=== PATIENT | female | born 1965 | race Caucasian/White ===

== ENCOUNTER 2022-09-17 19:53 | Outpatient (REF) | payer OTHER, SELFPAY ==
[2022-09-23 15:08] LABS: Age Gdln ACOG Testing Note (.); HPV Aptima Negative (Negative); IGP, Aptima HPV, rfx 16/18,45 Note (.)
== END 2022-09-17 19:54 | disposition home or self-care (01) ==
LOC: LAB 19:53
PROVIDERS: Visit Provider Physician Assistant
DX: Z01.419 Encounter for gynecological examination (general) (routine) without abnormal findings (principal)
CPT/HCPCS: 87624; G0145

== ENCOUNTER 2022-09-30 06:59 | Outpatient (OUT) | payer OTHER, SELFPAY ==
--- NOTE | 2022-09-30 07:03 | MM_ITS ---
Patient: SUSAN COLLAZO Exam Date: 09/30/2022 : 1965 Gender:F Ordering : DR Leo Garrett . Admission #: [id number] Family : Non-Staff Physician Order #: [id number] CLICK HERE TO VIEW EXAM RADIOLOGY REPORT PROCEDURE: MM TOMOSYNTHESIS SCREENING BI COMPARISON: MG MAMM SCREEN BLOSSOM W CAD, 01/25/2019. MG MAMM SCREEN 3D BLOSSOM CAD, 06/19/2020. INDICATIONS: Screening Calculator Name NCI Breast Cancer Risk Assessment Tool 5 Year Breast Cancer Risk 1.70% Lifetime Breast Cancer Risk 9.10% Personal Breast Cancer No Personal Ovarian Cancer No Treatments None Family Cancers None LOCATION: [facility] BREAST COMPOSITION: Heterogeneously dense,which may obscure small masses. FINDINGS: DIAGNOSTIC CATEGORY 1--NEGATIVE. NO CHANGE FROM COMPARISON ASSESSMENT. Scattered benign-appearing calcifications are present. Scattered benign-appearing lymph nodes are present. RIGHT BREAST: No significant suspicious finding. LEFT BREAST: No significant suspicious finding. RECOMMENDATIONS: ROUTINE MAMMOGRAM AND CLINICAL EVALUATION IN 12 MONTHS. PLEASE NOTE: A NORMAL MAMMOGRAM DOES NOT EXCLUDE THE POSSIBILITY OF BREAST CANCER. A CLINICALLY SUSPICIOUS PALPABLE LUMP SHOULD BE BIOPSIED. Dictated by: Ravi Sepulveda MD on 09/30/2022 at 07:39 Approved by: Ravi Sepulveda MD on 09/30/2022 at 07:53
== END 2022-09-30 07:00 | disposition home or self-care (01) ==
LOC: MAMMO 06:59
PROVIDERS: Visit Provider Obstetrics & Gynecology
DX: Z12.31 Encounter for screening mammogram for malignant neoplasm of breast (principal)
CPT/HCPCS: 77063; 77067

== ENCOUNTER 2023-10-06 06:51 | Outpatient (OUT) | payer OTHER, SELFPAY ==
--- NOTE | 2023-10-06 06:54 | MM_ITS ---
Patient Name: SUSAN COLLAZO MR#: [id number] : 1965 Exam Date: 10/06/2023 Ordering Doctor: DR Leo Garrett . RADIOLOGY REPORT PROCEDURE: MM TOMOSYNTHESIS SCREENING BI COMPARISON: MM TOMOSYNTHESIS SCREENING BI, 09/30/2022. MG MAMM SCREEN 3D BLOSSOM CAD, 06/19/2020. MG MAMM SCREEN BLOSSOM W CAD, 01/25/2019. MG MAMM BLOSSOM SCRN W CAD DIG, 07/21/2012. INDICATIONS: screening Calculator Name NCI Breast Cancer Risk Assessment Tool 5 Year Breast Cancer Risk 1.80% Lifetime Breast Cancer Risk 8.90% Personal Breast Cancer No Personal Ovarian Cancer No Treatments None Family Cancers None LOCATION: [facility] BREAST COMPOSITION: The breasts are heterogeneously dense,which may obscure small masses. FINDINGS: DIAGNOSTIC CATEGORY 1--NEGATIVE. RIGHT BREAST: No significant suspicious finding. No significant change has occurred. LEFT BREAST: No significant suspicious finding. No significant change has occurred. RECOMMENDATIONS: ROUTINE MAMMOGRAM AND CLINICAL EVALUATION IN 12 MONTHS. PLEASE NOTE: A NORMAL MAMMOGRAM DOES NOT EXCLUDE THE POSSIBILITY OF BREAST CANCER. A CLINICALLY SUSPICIOUS PALPABLE LUMP SHOULD BE BIOPSIED. Dictated by: Sid Bojorquez M.D. on 10/07/2023 at 15:51 Approved by: Sid Bojorquez M.D. on 10/07/2023 at 15:52
== END 2023-10-06 06:52 | disposition home or self-care (01) ==
LOC: MAMMO 06:51
PROVIDERS: PCP Family Medicine; Visit Provider Obstetrics & Gynecology
DX: Z12.31 Encounter for screening mammogram for malignant neoplasm of breast (principal)
CPT/HCPCS: 77063; 77067

== ENCOUNTER 2023-11-03 19:43 | Outpatient (REF) | payer OTHER, SELFPAY ==
--- OUTSIDE RECORDS SUMMARY | 2023-11-03 19:47 | XMS_ITS | CCD ---
Author Organization [facility] Care Team Providers Care Addressing Machine Operator Name Role Phone DR SHEILA NEGRON Attending Unavailable DR SHEILA NEGRON Consulting Unavailable DR SHEILA NEGRON Admitting Unavailable Allergies Allergy Classification Reported Allergen(s) Allergy Type Date of Onset Reaction(s) Facility (1 source) Penicillins Drug allergy (disorder) [facility] Results Test Name Value Interpretation Reference Range Critical access hospital CBC AUTO DIFFon 10-02-2021 BASO # 0.0 103/ul Normal 0.0-0.1 [facility] Comment on above: Performed By: #### H FPFCBC #### [facility] [address] [place] [address] Dr. Kp Kohler Basophils/100 WBC (Bld) 0.5 % Normal 0.2-2.0 [facility] Comment on above: Performed By: #### H FPFCBC #### [facility] [address] [place] [address] Dr. Kp Kohler EO # 0.1 103/ul Normal 0.0-0.7 [facility] Comment on above: Performed By: #### H FPFCBC #### [facility] [address] [place] [address] Dr. Kp Kohler Eosinophils/100 WBC (Bld) 3.8 % Normal 0.9-7.0 [facility] Comment on above: Performed By: #### H FPFCBC #### [facility] [address] [place] [address] Dr. Kp Kohler Erythrocyte distribution width (RBC) [Ratio] 12.9 % Normal 11.0-15.0 [facility] Comment on above: Performed By: #### H FPFCBC #### [facility] [address] [place] [address] Dr. Kp Kohler Hematocrit (Bld) [Volume fraction] 40.4 % Normal 36.0-48.0 [facility] Comment on above: Performed By: #### H FPFCBC #### [facility] [address] [place] [address] Dr. Kp Kohler Hemoglobin (Bld) [Mass/Vol] 13.4 g/dL Normal 12.0-16.[address] [facility] Comment on above: Performed By: #### H FPFCBC #### [facility] [address] [place] [address] Dr. Kp Kohler IG # 0.01 10e3/ul Normal 0.00-0.03 [facility] Comment on above: Performed By: #### H FPFCBC #### [facility] [address] [place] [address] Dr. Kp Kohler IG % 0.3 % Normal 0.0-0.5 [facility] Comment on above: Performed By: #### H FPFCBC #### [facility] [address] [place] [address] Dr. Kp Kohler LYMPH # 1.1 103/ul Critically low 1.2-3.8 [facility] Comment on above: Performed By: #### H FPFCBC #### [facility] [address] [place] [address] Dr. Kp Kohler Lymphocytes/100 WBC (Bld) 29.2 % Normal 20.5-60.0 [facility] Comment on above: Performed By: #### H FPFCBC #### [facility] [address] [place] [address] Dr. Kp Kohler MCH (RBC) [Entitic mass] 28.3 pg Normal 26.7-34.[address] [facility] Comment on above: Performed By: #### H FPFCBC #### [facility] [address] [place] [address] Dr. Kp Kohler MCHC (RBC) [Mass/Vol] 33.2 g/dL Normal 29.9-35.[address] [facility] Comment on above: Performed By: #### H FPFCBC #### [facility] [address] [place] [address] Dr. Kp Kohler MCV (RBC) [Entitic vol] 85.4 fL Normal 81.0-99.[address] [facility] Comment on above: Performed By: #### H FPFCBC #### [facility] [address] [place] [address] Dr. Kp Kohler MONO # 0.3 103/ul Normal 0.3-0.8 [facility] Comment on above: Performed By: #### H FPFCBC #### [facility] [address] [place] [address] Dr. Kp Kohler Monocytes/100 WBC (Bld) 8.1 % Normal 1.7-12.[address] [facility] Comment on above: Performed By: #### H FPFCBC #### [facility] [address] [place] [address] Dr. Kp Kohler NEUT # 2.2 103/ul Normal 1.4-6.5 [facility] Comment on above: Performed By: #### H FPFCBC #### [facility] [address] [place] [address] Dr. Kp Kohler Neutrophils/100 WBC (Bld) 58.1 % Normal 43.0-75.0 [facility] Comment on above: Performed By: #### H FPFCBC #### [facility] [address] [place] [address] Dr. Kp Kohler Platelet mean volume (Bld) [Entitic vol] 10.0 fL Normal 9.5-13.[address] [facility] Comment on above: Performed By: #### H FPFCBC #### [facility] [address] [place] [address] Dr. Kp Kohler PLT 215 103/ul Normal 150-[address] [facility] Comment on above: Performed By: #### H FPFCBC #### [facility] [address] [place] [address] Dr. Kp Kohler RBC 4.73 106/ul Normal 4.20-5.[address] [facility] Comment on above: Performed By: #### H FPFCBC #### [facility] [address] [place] [address] Dr. Kp Kohler WBC 3.7 103/ul Critically low 4.0-11.0 [facility] Comment on above: Performed By: #### H FPFCBC #### [facility] [address] [place] [address] Dr. Kp Kohler [employer] PROFILEon 022 Albumin [Mass/Vol] 4.0 g/dL Normal 3.4-5.0 [facility] Comment on above: Performed By: #### H FPF #### [facility] [address] [place] [address] Dr. Kp Kohler Albumin/Globulin [Mass ratio] 1.1 {ratio} Normal [facility] Comment on above: Performed By: #### H FPF #### [facility] [address] [place] [address] Dr. Kp Kohler ALP [Catalytic activity/Vol] 62 U/L Normal 46-116 [facility] Comment on above: Performed By: #### H FPF #### [facility] [address] [place] [address] Dr. Kp Kohler ALT [Catalytic activity/Vol] 20 U/L Normal 14-59 [facility] Comment on above: Performed By: #### H FPF #### [facility] [address] [place] [address] Dr. Kp Kohler AST [Catalytic activity/Vol] 18 U/L Normal 15-37 [facility] Comment on above: Performed By: #### H FPF #### [facility] [address] [place] [address] Dr. Kp Kohler Bilirubin [Mass/Vol] 0.7 mg/dL Normal 0.2-1.0 [facility] Comment on above: Performed By: #### H FPF #### [facility] [address] [place] [address] Dr. Kp Kohler Calcium [Mass/Vol] 9.2 mg/dL Normal 8.5-10.1 [facility] Comment on above: Performed By: #### H FPF #### [facility] [address] [address] [address] Kp Kohler Chloride [Moles/Vol] 103 mmol/L Normal 98-107 [facility] Comment on above: Performed By: #### H FPF #### [facility] [address] [address] [address] Kp Kohler CHOL-HDL RATIO NORM SEE BELOW Normal [facility] Comment on above: Result Comment: 3.3 - 4.4 LOW RISK 4.4 - 7.1 AVERAGE RISK 7.1 - 11.0 MODERATE RISK >11.0 HIGH RISK Performed By: #### H FPF #### [facility] [address] [address] [address] Kp Kohler Cholesterol [Mass/Vol] 218 mg/dL Critically high <=200 [facility] Comment on above: Performed By: #### H FPF #### [facility] [address] [address] [address] Kp Kohler Cholesterol in HDL [Mass/Vol] 58 mg/dL Normal 40-60 [facility] Comment on above: Performed By: #### H FPF #### [facility] [address] [address] [address] Kp Kohler Cholesterol in LDL [Mass/Vol] 150.4 mg/dL Normal [facility] Comment on above: Performed By: #### H FPF #### [facility] [address] [address] [address] Kp Kohler Cholesterol.total/C holesterol in HDL [Mass ratio] 3.8 {ratio} Normal [facility] Comment on above: Performed By: #### H FPF #### [facility] [address] [address] [address] Kp Kohler CO2 [Moles/Vol] 28.6 mmol/L Normal 21.0-32.0 [facility] Comment on above: Performed By: #### H FPF #### [facility] [address] [address] [address] Kp Kohler Creatinine [Mass/Vol] 0.82 mg/dL Normal 0.55-1.02 [facility] Comment on above: Performed By: #### H FPF #### [facility] [address] [address] [address] Kp Kohler Globulin (S) [Mass/Vol] 3.5 g/dL Normal [facility] Comment on above: Performed By: #### H FPF #### [facility] [address] [address] [address] Kp Kohler Glucose [Mass/Vol] 82 mg/dL Normal 74-106 [facility] Comment on above: Performed By: #### H FPF #### [facility] [address] [address] [address] Kp Kohler HDL NORMAL > or = 60 mg/dl - LO W CARDIOVASCULAR RISK <40 mg/dl - HIGH CARDIOVASCULAR RISK Normal [facility] Comment on above: Performed By: #### H FPF #### [facility] [address] [address] [address] Kp Kohler LDL CALC NORMAL SEE BELOW Normal [facility] Comment on above: Result Comment: <100 mg/dl OPTIMAL 100 - 129 mg/dl NEAR OR ABOVE OPTIMAL 130 - 159 mg/dl BORDERLINE HIGH 160 - 189 mg/dl HIGH >190 mg/dl VERY HIGH Performed By: #### H FPF #### [facility] [address] [address] [address] Kp Kohler Potassium [Moles/Vol] 3.5 mmol/L Normal 3.5-5.[address] [facility] Comment on above: Performed By: #### H FPF #### [facility] [address] [address] [address] Kp Kohler Protein [Mass/Vol] 7.5 g/dL Normal 6.4-8.2 [facility] Comment on above: Performed By: #### H FPF #### [facility] [address] [address] [address] Kp Kohler Sodium [Moles/Vol] 140 mmol/L Normal 136-145 [facility] Comment on above: Performed By: #### H FPF #### [facility] [address] [address] [address] Kp Kohler Triglyceride [Mass/Vol] 48 mg/dL Normal <=[address] [facility] Comment on above: Performed By: #### H FPF #### [facility] [address] [address] [address] Kp Kohler TSH 2.926 uIU/mL Normal 0.358-3.740 [facility] Comment on above: Performed By: #### H FPF #### [facility] [address] [address] [address] Kp Kohler Urea nitrogen [Mass/Vol] 13.0 mg/dL Normal 7.0-18.0 [facility] Comment on above: Performed By: #### H FPF #### [facility] [address] [address] [address] Kp Kohler Urea nitrogen/Creatinine [Mass ratio] 15.9 mg/mg Normal [facility] Comment on above: Performed By: #### H FPF #### [facility] [address] [address] [address] Kp Kohler VLDL CALC 9.6 mg/dL Normal [facility] Comment on above: Performed By: #### H FPF #### [facility] [address] [address] [address] Kp Kohler Encounters Encounter Date Encounter Type Care Provider Facility Start: 10-02-2021 End: 10-03-[address] SHEILA NEGRON Facility: Payers Date Payer Category Payer Self-pay [id number] Unknown [id number] Summary Purpose Family History No Family History Records Found Advance Directives No Advanced Directives Records Found Additional Source Comments INFORMATION SOURCE (unrecogn ized section and content) DATE CREATED AUTHOR 10/08/2021 [facility] FOR RECORDS PERTAINING TO PATIENTS WHO ARE OR HAVE BEEN ENROLLED IN A CHEMICAL DEPENDENCY/SUBSTANCEABUSE PROGRAM, SOME INFORMATION MAY BE OMITTED. This clinical summary was aggregated from multiple sources. Caution should be exercised in using it in the provision of clinical care. This summary normalizes information from multiple sources, and as a consequence, information in this document may materially change the coding, format and clinical context of patient data. In addition, data may be omitted in some cases. CLINICAL DECISIONS SHOULD BE BASED ON THE PRIMARY CLINICAL RECORDS. [employer] [facility]. provides no warranty or guarantee of the accuracy or completeness of information in this document.
[2023-11-09 11:12] LABS: Age Gdln ACOG Testing Note (.); HPV Aptima Negative (Negative); IGP, Aptima HPV, rfx 16/18,45 Note (.)
== END 2023-11-03 19:44 | disposition home or self-care (01) ==
LOC: LAB 19:43
PROVIDERS: PCP Family Medicine; Visit Provider Physician Assistant
DX: Z01.419 Encounter for gynecological examination (general) (routine) without abnormal findings (principal)
CPT/HCPCS: 87624; 88175

== ENCOUNTER 2023-11-24 14:52 | Outpatient (OUT) | payer OTHER, SELFPAY ==
--- OUTSIDE RECORDS SUMMARY | 2023-11-24 15:12 | XMS_ITS | CCD ---
Author Organization [facility] Care Team Providers Care Rental Coordinator Name Role Phone DR SHEILA NEGRON Attending Unavailable DR SHEILA NEGRON Consulting Unavailable DR SHEILA NEGRON Admitting Unavailable JARON HOPKINS Attending Unavailable Allergies Allergy Classification Reported Allergen(s) Allergy Type Date of Onset Reaction(s) Facility (1 source) Penicillins Drug allergy (disorder) [facility] Repository Results Test Name Value Interpretation Reference Range [facility] CBC AUTO DIFFon 10-02-2021 BASO # 0.0 103/ul Normal 0.0-0.1 [facility] Comment on above: Performed By: #### H FPFCBC #### [facility] Laboratory [address] [address] [address] Kp Kohler Basophils/100 WBC (Bld) 0.5 % Normal 0.2-2.0 [facility] Comment on above: Performed By: #### H FPFCBC #### [facility] [address] [address] [address] Kp Kohler EO # 0.1 103/ul Normal 0.0-0.7 [facility] Comment on above: Performed By: #### H FPFCBC #### [facility] [address] [address] [address] Kp Kohler Eosinophils/100 WBC (Bld) 3.8 % Normal 0.9-7.0 [facility] Comment on above: Performed By: #### H FPFCBC #### [facility] [address] [address] [address] Kp Kohler Erythrocyte distribution width (RBC) [Ratio] 12.9 % Normal 11.0-15.0 [facility] Comment on above: Performed By: #### H FPFCBC #### [facility] [address] [address] [address] Kp Kohler Hematocrit (Bld) [Volume fraction] 40.4 % Normal 36.0-48.0 [facility] Comment on above: Performed By: #### H FPFCBC #### [facility] [address] [place] [address] Dr. Kp Kohler Hemoglobin (Bld) [Mass/Vol] 13.4 g/dL Normal 12.0-16.0 [facility] Comment on above: Performed By: #### H FPFCBC #### [facility] [address] [place] [address] Dr. Kp Kohler IG # 0.01 10e3/ul Normal 0.00-0.03 [facility] Comment on above: Performed By: #### H FPFCBC #### [facility] [address] [place] [address] Dr. Kp Kohler IG % 0.3 % Normal 0.0-0.5 [facility] Comment on above: Performed By: #### H FPFCBC #### [facility] [address] [place] [address] Dr. Kp Kohler LYMPH # 1.1 103/ul Critically low 1.2-3.8 [facility] Comment on above: Performed By: #### H FPFCBC #### [facility] [address] [place] [address] Dr. Kp Kohler Lymphocytes/100 WBC (Bld) 29.2 % Normal 20.5-60.0 [facility] Comment on above: Performed By: #### H FPFCBC #### [facility] [address] [place] [address] Dr. Kp Kohler MCH (RBC) [Entitic mass] 28.3 pg Normal 26.7-34.0 [facility] Comment on above: Performed By: #### H FPFCBC #### [facility] [address] [place] [address] Dr. Kp Kohler MCHC (RBC) [Mass/Vol] 33.2 g/dL Normal 29.9-35.2 [facility] Comment on above: Performed By: #### H FPFCBC #### [facility] [address] [place] [address] Dr. Kp Kohler MCV (RBC) [Entitic vol] 85.4 fL Normal 81.0-99.0 [facility] Comment on above: Performed By: #### H FPFCBC #### [facility] [address] [place] [address] Dr. Kp Kohler MONO # 0.3 103/ul Normal 0.3-0.8 [facility] Comment on above: Performed By: #### H FPFCBC #### [facility] [address] [place] [address] Dr. Kp Kohler Monocytes/100 WBC (Bld) 8.1 % Normal 1.7-12.0 [facility] Comment on above: Performed By: #### H FPFCBC #### [facility] [address] [place] [address] Dr. Kp Kohler NEUT # 2.2 103/ul Normal 1.4-6.5 [facility] Comment on above: Performed By: #### H FPFCBC #### [facility] [address] [place] [address] Dr. Kp Kohler Neutrophils/100 WBC (Bld) 58.1 % Normal 43.0-75.0 [facility] Comment on above: Performed By: #### H FPFCBC #### [facility] [address] [place] [address] Dr. Kp Kohler Platelet mean volume (Bld) [Entitic vol] 10.0 fL Normal 9.5-13.5 [facility] Comment on above: Performed By: #### H FPFCBC #### [facility] [address] [place] [address] Dr. Kp Kohler PLT 215 103/ul Normal 150-450 [facility] Comment on above: Performed By: #### H FPFCBC #### [facility] [address] [place] [address] Dr. Kp Kohler RBC 4.73 106/ul Normal 4.20-5.40 [facility] Comment on above: Performed By: #### H FPFCBC #### [facility] [address] [address] [address] Kp Kohler WBC 3.7 103/ul Critically low 4.0-11.0 [facility] Comment on above: Performed By: #### H FPFCBC #### [facility] [address] [address] [address] Kp Kohler [employer] PROFILEon 10-02- 022 Albumin [Mass/Vol] 4.0 g/dL Normal 3.4-5.0 [facility] Comment on above: Performed By: #### H FPF #### [facility] [address] [place] [address] Dr. Kp Kohler Albumin/Globulin [Mass ratio] 1.1 {ratio} Normal [facility] Comment on above: Performed By: #### H FPF #### [facility] [address] [place] [address] Dr. Kp Kohler ALP [Catalytic activity/Vol] 62 U/L Normal 46-116 [facility] Comment on above: Performed By: #### H FPF #### [facility] [address] [place] [address] Dr. Kp Kohler ALT [Catalytic activity/Vol] 20 U/L Normal 14-59 [facility] Comment on above: Performed By: #### H FPF #### [facility] [address] [place] [address] Dr. Kp Kohler AST [Catalytic activity/Vol] 18 U/L Normal 15-37 [facility] Comment on above: Performed By: #### H FPF #### [facility] [address] [place] [address] Dr. Kp Kohler Bilirubin [Mass/Vol] 0.7 mg/dL Normal 0.2-1.0 [facility] Comment on above: Performed By: #### H FPF #### [facility] [address] [place] [address] Dr. Kp Kohler Calcium [Mass/Vol] 9.2 mg/dL Normal 8.5-10.1 [facility] Comment on above: Performed By: #### H FPF #### [facility] [address] [address] [address] Kp Kohler Chloride [Moles/Vol] 103 mmol/L Normal 98-107 [facility] Comment on above: Performed By: #### H FPF #### [facility] [address] [address] [address] Kp Kohler CHOL-HDL RATIO NORM SEE BELOW Normal [facility] Comment on above: Result Comment: 3.3 - 4.4 LOW RISK 4.4 - 7.1 AVERAGE RISK 7.1 - 11.0 MODERATE RISK >11.0 HIGH RISK Performed By: #### H FPF #### [facility] [address] [place] [address] Dr. Kp Kohler Cholesterol [Mass/Vol] 218 mg/dL Critically high <=200 [facility] Comment on above: Performed By: #### H FPF #### [facility] [address] [place] [address] Dr. Kp Kohler Cholesterol in HDL [Mass/Vol] 58 mg/dL Normal 40-60 [facility] Comment on above: Performed By: #### H FPF #### [facility] [address] [place] [address] Dr. Kp Kohler Cholesterol in LDL [Mass/Vol] 150.4 mg/dL Normal [facility] Comment on above: Performed By: #### H FPF #### [facility] [address] [place] [address] Dr. Kp Kohler Cholesterol.total/C holesterol in HDL [Mass ratio] 3.8 {ratio} Normal [facility] Comment on above: Performed By: #### H FPF #### [facility] [address] [address] [address] Kp Kohler CO2 [Moles/Vol] 28.6 mmol/L Normal 21.0-32.0 [facility] Comment on above: Performed By: #### H FPF #### [facility] [address] [address] [address] Kp Kohler Creatinine [Mass/Vol] 0.82 mg/dL Normal 0.55-1.02 [facility] Comment on above: Performed By: #### H FPF #### [facility] [address] [address] [address] Kp Kohler Globulin (S) [Mass/Vol] 3.5 g/dL Normal [facility] Comment on above: Performed By: #### H FPF #### [facility] [address] [address] [address] Kp Kohler Glucose [Mass/Vol] 82 mg/dL Normal 74-106 [facility] Comment on above: Performed By: #### H FPF #### [facility] [address] [address] [address] Kp Kohler HDL NORMAL > or = 60 mg/dl - LO W CARDIOVASCULAR RISK <40 mg/dl - HIGH CARDIOVASCULAR RISK Normal [facility] Comment on above: Performed By: #### H FPF #### [facility] [address] [address] [address] Kp Kohler LDL CALC NORMAL SEE BELOW Normal [facility] Comment on above: Result Comment: <100 mg/dl OPTIMAL 100 - 129 mg/dl NEAR OR ABOVE OPTIMAL 130 - 159 mg/dl BORDERLINE HIGH 160 - 189 mg/dl HIGH >190 mg/dl VERY HIGH Performed By: #### H FPF #### [facility] [address] [place] [address] Dr. Kp Kohler Potassium [Moles/Vol] 3.5 mmol/L Normal 3.5-5.1 [facility] Comment on above: Performed By: #### H FPF #### [facility] [address] [address] [address] Kp Kohler Protein [Mass/Vol] 7.5 g/dL Normal 6.4-8.2 [facility] Comment on above: Performed By: #### H FPF #### [facility] [address] [place] [address] Dr. Kp Kohler Sodium [Moles/Vol] 140 mmol/L Normal 136-145 [facility] Comment on above: Performed By: #### H FPF #### [facility] [address] [address] [address] Kp Kohler Triglyceride [Mass/Vol] 48 mg/dL Normal <=150 [facility] Comment on above: Performed By: #### H FPF #### [facility] [address] [id number] Kp Kohler TSH 2.926 uIU/mL Normal 0.358-3.740 [facility] Comment on above: Performed By: #### H FPF #### [facility] [address] [address] [address] Kp Kohler Urea nitrogen [Mass/Vol] 13.0 mg/dL Normal 7.0-18.0 [facility] Comment on above: Performed By: #### H FPF #### [facility] [address] [address] [address] Kp Kohler Urea nitrogen/Creatinine [Mass ratio] 15.9 mg/mg Normal [facility] Comment on above: Performed By: #### H FPF #### [facility] [address] [address] [address] Kp Kohler VLDL CALC 9.6 mg/dL Normal [facility] Comment on above: Performed By: #### H FPF #### [facility] [id number] Kp Kohler Encounters Encounter Date Encounter Type Care Provider Facility Start: 11-03-2023 End: 11-03-2023 ambulatory JARON HOPKINS Not Available Start: 10-02-2021 End: 10-03-[address] SHEILA NEGRON Facility: Payers Date Payer Category Payer Unknown [id number] 1965 Unknown [id number] 04.02.83 [id number] 1961 Self-pay [id number] Unknown [id number] 04.02.83 [id number] Summary Purpose Family History No Family History Records FoundNo Family History Records Found Advance Directives No Advanced Directives Records FoundNo Advanced Directives Records Found Additional Source Comments INFORMATION SOURCE (unrecogn ized section and content) DATE CREATED AUTHOR 10/08/2021 [facility] DATE CREATED AUTHOR AUTHOR'S SHAHRIAR CORTES 11/05/2023 [facility] dical Specialists [facility] FOR RECORDS PERTAINING TO PATIENTS WHO ARE [...] BE BASED ON THE PRIMARY CLINICAL RECORDS. [facility] [employer] provides no warranty or guarantee of the accuracy or completeness of information in this document.
--- NOTE | 2023-11-24 15:23 | XR_ITS ---
The [address] [address] Patient Name: SUSAN COLLAZO MRN: [id number] date: 1965 Sex: F Assigned Patient Location: [facility] Current Patient Location: Accession/Order Number: [id number] Exam Date: 11/24/2023 15:15 Report Date: 11/25/2023 04:56 At the request of: JARON HOPKINS Procedure: XR DEXA axial skeleton EXAMINATION: XR DEXA axial skeleton HISTORY: Screening Osteoporosis COMPARISON: No relevant comparison available. TECHNIQUE: Dual-energy X-ray absorptiometry (DXA) was performed. FINDINGS: SPINE ANALYSIS: Average bone mineral density is 1.080 g/cm2. T-score (standard deviation relative to young adult mean): -0.8 . HIP ANALYSIS: Lowest bone mineral density is within the left femoral neck, 0.751 g/cm2. T-score (standard deviation relative to young adult mean): -2.1 . XR/XR DEXA axial skeleton IMPRESSION: World Health Organization Classification: Osteopenia - Moderate Fracture Risk FRAX: Cannot be calculated. Pharmacologic treatment recommendations * No uniform recommendation applies to all patients. Management plans must be individualized. * Consider initiating pharmacologic treatment in postmenopausal women and men >= 50 years of age who have the following: Primary fracture prevention: * T-score <= - 2.5 at the femoral neck, total hip, lumbar spine, 33% radius (some uncertainty with existing data) by DXA. * Low bone mass (osteopenia: T-score between - 1.0 and - 2.5) at the femoral neck or total hip by DXA with a 10-year hip fracture risk >= 3% or a 10-year major osteoporosis-related fracture risk >= 20% (i.e., clinical vertebral, hip, forearm, or proximal humerus) based on the [place]-adapted FRAXregistered model. Secondary fracture prevention: * Fracture of the hip or vertebra regardless of BMD [4, 5]. * Fracture of proximal humerus, pelvis, or distal forearm in persons with low bone mass (osteopenia: T-score between - 1.0 and - 2.5). The decision to treat should be individualized in persons with a fracture of the proximal humerus, pelvis, or distal forearm who do not have osteopenia or low BMD [12, 13]. Gilmar MS, Winnie SL, Rico KL, Ene EM, Angela KG, AJ, Ilya ES. The clinician's guide to prevention and treatment of osteoporosis. Osteoporos Int. 2021;33(10):3847-5855. doi: 10.1007/j93909-693-14536-t. Epub 2021Jun 12. Erratum in: Osteoporos Int. 2021Sep 11;: PMID: 77458050; PMCID: [id number]. Electronically authenticated by: CHATO SHELBY Date: 11/25/2023 04:56
== END 2023-11-24 14:53 | disposition home or self-care (01) ==
LOC: RAD 14:52
PROVIDERS: PCP Family Medicine; Visit Provider Physician Assistant
DX: M85.80 Other specified disorders of bone density and structure, unspecified site (principal); Z78.0 Asymptomatic menopausal state
CPT/HCPCS: 77080

== ENCOUNTER 2024-11-28 15:19 | Outpatient (REF) | payer OTHER, SELFPAY ==
--- OUTSIDE RECORDS SUMMARY | 2024-11-28 08:30 | XMS_ITS | Encounter Summary ---
Author Organization [facility] Address [address] [place] [address] Care Team Providers Care Speedboat Driver Name Role Phone Tracey Johnson Unavailable Reason for Visit * Reason Comments Well Women Visit Encounter Details Date Type Department Care Team ([facility] st Contact Info) Description 11/28/2024 8:30 AM EDT Office Visit [facility] [address] [place] [place] [address] Leo Garrett DO [address] [place], [facility]11 Well woman exam with routine gynecological exam; Encounter for screening mammogram for malignant neoplasm of breast; Postmenopausal state; Cervical polyp Social History Tobacco Use Types Packs/Day Years Used Date Smoking Tobacco: Never Smokeless Tobacco: Never Alcohol Use Standard Drinks/Week Comments Not Currently 0 (1 standard drink = 0.6 oz pure alcohol) Caffeine intake: 2-3 cups per day coffee Comments No Sex and Gender Information Value Date Recorded Sex Assigned at Not on file Legal Sex Female 6:48 PM EDT Gender Identity Not on file Sexual Orientation Not on file documented as of this encounter Last Filed Vital Signs Vital Sign Reading Time Taken Comments Blood Pressure 114/72 11/28/2024 8:37 AM EDT Pulse - - Temperature - - Respiratory Rate - - Oxygen Saturation - - Inhaled Oxygen Concentration - - Weight 77.9 kg (171 lb 12 oz) 11/28/2024 8:37 AM EDT Height - - Body Mass Index 33.54 07/11/2024 3:49 PM EDT documented in this encounter Progress Notes * Katherine Davila, COMPUTER NETWORK AND SYSTEMS ENGINEER - 11/28/2024 8:30 AM EDT Reason for Appointment: Patient ID: Elena Bates is a 59 y.o. female who presents for Well Women Visit Patient presents today for Annual Exam. 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 Pure hypercholesterolemia 09/16/2022 Resolved Ambulatory Problems Diagnosis Date Noted No Resolved Ambulatory Problems Past Medical History: Diagnosis Date Allergies Fibrocystic breast Menopause ovarian failure HISTORY PAST MEDICAL HISTORY SOCIAL HISTORY Medical History[2] Social History Tobacco Use Smoking status: Never Smokeless tobacco: Never Substance Use Topics Alcohol use: Not Currently Comment: Caffeine intake: 2-3 cups per day coffee Drug use: Never FAMILY HISTORY Family History[3] SURGICAL HISTORY Surgical History[4] REVIEW OF SYSTEMS Review of Systems: Review of Systems Constitutional: Negative. HENT: Negative. Eyes: Negative. Respiratory: Negative. Cardiovascular: Negative. Gastrointestinal: Negative. Genitourinary: Negative. Musculoskeletal: Negative. Skin: Negative. Neurological: Negative. All other systems reviewed and are negative. Hematological: Negative. Endocrine: Negative. Allergic/Immunologic: Negative. OBJECTIVE Objective: Physical Exam Constitutional: Appearance: Normal appearance. She is well-developed. Genitourinary: Vulva normal. Cardiovascular: Rate and Rhythm: Normal rate and regular rhythm. Pulmonary: Effort: Pulmonary effort is normal. Breath sounds: Normal breath sounds. Abdominal: General: Bowel sounds are normal. There is no distension. Palpations: Abdomen is soft. Tenderness: There is no abdominal tenderness. There is no guarding or rebound. Musculoskeletal: General: No swelling. Normal range of motion. Right lower leg: No edema. Left lower leg: No edema. Neurological: Mental Status: She is alert and oriented to person, place, and time. Skin: General: Skin is warm and dry. Psychiatric: Mood and Affect: Mood normal. Behavior: Behavior normal. Vitals and nursing note reviewed. Exam conducted with a funeral director and embalmer present. Vitals: Estimated body mass index is 33.54 kg/m?? as calculated from the following: Height as of 07/11/24: 5'. Weight as of this encounter: 171 lb 12 oz. BP: 114/72 No LMP recorded (lmp unknown). Patient is postmenopausal. ASSESSMENT & PLAN ICD-10-CM 1. Well woman exam with routine gynecological exam Z01.419 THIN PREP TIS PAP AND HR HPV DNA 2. Encounter for screening mammogram for malignant neoplasm of breast Z12.31 Bilateral screening mammogram Bilateral screening mammogram 3. Postmenopausal state Z78.0 Orders Placed This Encounter Procedures Bilateral screening mammogram Annual Wellness Exam: Patient presents today for routine annual exam. Patient states she has no current complaints. Patients vitals were reviewed and within normal limits. Growth and development is noted to be appropriate for age. No mental health concerns was expressed. Pap Smear: Speculum was inserted into the vagina and pap was obtained without difficulty. HPV testing was performed per age guideline. Patient was advised that pap results could take anywhere from 7 to 10 days to receive and our office will reach out to the patient with those once we have them. Patient can also view results via [employer]. I reinforced importance of condom use for STI prevention. Patient declined cultures to be performed with today's visit. Breast Exam: Upon examination, clinical breast exam was noted to be normal and screening mammogram was ordered and given to patient to have obtained. Patient was counseled on breast self-awareness, including the importance of knowing what is normal for her own breasts and promptly reporting any changes such as new lumps, skin dimpling, nipple discharge, or pain. Screening mammogram was recommended annually. Discussed signs and symptoms of breast cancer and when to seek medical attention. Answered all patient questions. DEXA Counseling: DEXA scan ordered and given to the patient to have performed for osteoporosis screening per guidelines. Patient counseled on bone health, including the importance of calcium and vitamin D intake, weight-bearing exercise, fall prevention, and avoiding tobacco and excessive alcohol. Discussed purposeof DEXA in assessing fracture risk and monitoring bone density. Patient advised results will be reviewed upon completion and next steps discussed as needed. Follow Up: Patient is to return to our office in one year for annual exam unless needed otherwise. Documented by Katherine Davila LPN on behalf of: Leo Garrett DO [1] Allergies Allergen Reactions Penicillins Anaphylaxis, Rash, Shortness of breath, Swelling and Unknown [2] Past Medical History: Diagnosis Date Allergies Fibrocystic breast Menopause ovarian failure [3] No family history on file. [4] Past Surgical History: Procedure Laterality Date COLONOSCOPY 1995 documented in this encounter Miscellaneous Notes * Addendum Note - Ashley Hurley MA - 11/28/2024 8:30 AM EDTAddended by: ASHLEY HURELY on: 11/28/2024 09:28 AM Modules accepted: Orders documented in this encounter Plan of Treatment Upcoming Encounters Date Type Department Care Team (Late st Contact Info) Description 12/03/2025 4:00 PM EDT Procedure Visit [facility] [address] [place] [address] Leo Garrett DO [address] [place] [address] Scheduled Orders Name Type Priority Associated Diagnoses Orde r Schedule Bilateral screening mammogram Imaging Routine Encounter for screening mammogram for malignant neoplasm of breast Expected: 11/28/2024, Expires: 01/28/2026 THIN PREP TIS PAP AND HR HPV DNA Pathology and Cytology Routine Well woman exam with routine gynecological exam Ordered: 11/28/2024 Biopsy vaginal Procedures Routine Cervical polyp Ordered: 11/28/2024 documented as of this encounter Procedures Procedure Name Priority Date/Time Associated Diagnosis Comments PAP SMEAR Routine 11/03/2023 12:00 AM EDT documented in this encounter Results * Pap Smear (11/03/2023 12:00 AM EDT) Swab Cervical swab / Unknown Tracey [facility] CYTOLOGY ORDERABLES Final Re sult EXTERNAL LAB documented in this encounter Visit Diagnoses Diagnosis Well woman exam with routine gynecological exam Routine gynecological examination Encounter for screening mammogram for malignant neoplasm of breast Postmenopausal state Asymptomatic postmenopausal status (age-related) (natural) Cervical polyp Mucous polyp of cervix documented in this encounter Care Teams Speedboat Driver Relationship Specialty Start Date End Date Tracey Johnson PA [address] [place], [facility]11 PCP - Medical [place] [employer] 08/15/13 02/14/99 documented as of this encounter
--- OUTSIDE RECORDS SUMMARY | 2024-11-28 15:22 | XMS_ITS | Encounter Summary ---
Author Organization [facility] Address [address] [place] [address] Care Team Providers Care Academic Support Center Director Name Role Phone Elizabeth Tracey FORMAN Unavailable Encounter Details Date Type Department Care Team (Late Contact Info) Description 10/07/2023 Clinisync Result Encounter [facility] External Department Unsolicited Provider, Generic External Data Social History Tobacco Use Types Packs/Day Years Used Date Smoking Tobacco: Never Alcohol Use Standard Drinks/Week Comments Never 0 (1 standard drink = 0.6 oz pure alcohol) Caffeine intake: 2-3 cups per day coffee Comments No Sex and Gender Information Value Date Recorded Sex Assigned at Not on file Legal Sex Female 6:48 PM EDT Gender Identity Not on file Sexual Orientation Not on file documented as of this encounter Plan of Treatment Upcoming Encounters Date Type Department Care Team ([facility] Contact Info) Description 12/03/2025 4:00 PM EDT Procedure Visit [facility] [address] [place] [address] Leo Garrett DO [address] [place], [place] [id number] documented as of this encounter Procedures Procedure Name Priority Date/Time Associated Diagnosis Comments MM TOMOSYNTHESIS SCREENING BI 10/07/2023 3:52 PM EDT documented in this encounter Results * MM TOMOSYNTHESIS SCREENING BI (10/07/2023 3:52 PM EDT) Anatomical Region Laterality Modality Other 10/07/2023 3:52 PM EDT Narrative 10/07/2023 3:53 [place] [address] Mammography Report Signed Patient: ELENA BATES MR#: [id number] : 1965 Acct:[id number] Age/Sex: 58 / F ADM Date: 10/06/23 Loc: MAMMO Attending Dr: Leo Garrett D.O. Ordering Physician: Leo Garrett D.O. Results: Date of Service: 10/06/23 Follow Up: Procedure(s): MM tomosynthesis screening BI Accession Number(s): [id number] cc: SHEILA NEGRON ; Leo Garrett D.O. Patient Name: ELENA BATES MR#: [id number] : 1965 Exam Date: 10/06/2023 Ordering Doctor: DR Leo Garrett . RADIOLOGY REPORT PROCEDURE: MM TOMOSYNTHESIS SCREENING BI COMPARISON: MM TOMOSYNTHESIS SCREENING BI, 09/30/2022. MG MAMM SCREEN 3D BLOSSOM CAD, 06/19/2020. MG MAMM SCREEN BLOSSOM W CAD, 01/25/2019. MG MAMM BLOSSOM SCRN W CAD DIG, 07/21/2012. INDICATIONS: screening Calculator Name NCI Breast Cancer Risk Assessment Tool 5 Year Breast Cancer Risk 1.80% Lifetime Breast Cancer Risk 8.90% Personal Breast Cancer No Personal Ovarian Cancer No Treatments None Family Cancers None LOCATION: [facility] BREAST COMPOSITION: The breasts are heterogeneously dense,which may obscure small masses. FINDINGS: DIAGNOSTIC CATEGORY 1--NEGATIVE. RIGHT BREAST: No significant suspicious finding. No significant change has occurred. LEFT BREAST: No significant suspicious finding. No significant change has occurred. RECOMMENDATIONS: ROUTINE MAMMOGRAM AND CLINICAL EVALUATION IN 12 MONTHS. PLEASE NOTE: A NORMAL MAMMOGRAM DOES NOT EXCLUDE THE POSSIBILITY OF BREAST CANCER. A CLINICALLY SUSPICIOUS PALPABLE LUMP SHOULD BE BIOPSIED. Dictated by: Sid Bojorquez M.D. on 10/07/2023 at 15:51 Approved by: Sid Bojorquez M.D. on 10/07/2023 at 15:52 Dictated By: Sid Bojorquez M.D. Signed By: 10/07/23 1553 DD/ 155 TD/TT: Manager Corporate Responsibility: Procedure Note Radiology, Radiologist, MD - 10/07/2023 [place] [address] Mammography Report Signed Patient: ELENA BATES AMR#: [id number] : 1965Acct:[id number] Age/Sex: 58 / FADM Date: 10/06/23 Loc: MAMMO Attending Dr: Leo Garrett D.O. Ordering Physician: Leo Garrett D.O.Results: Date of Service: 10/06/23Follow Up: Procedure(s): MM tomosynthesis screening BI Accession Number(s): [id number] cc: SHEILA NEGRON ; Leo Garrett D.O. Patient Name: ELENA BATES MR#: [id number] : 1965 Exam Date: 10/06/2023 Ordering Doctor: DR Leo Garrett . RADIOLOGY REPORT PROCEDURE: MM TOMOSYNTHESIS SCREENING BI COMPARISON: MM TOMOSYNTHESIS SCREENING BI, 09/30/2022. MG MAMM SDESHI5Z BLOSSOM CAD, 06/19/2020. MG MAMM SCREEN BLOSSOM W CAD, 01/25/2019. MG MAMM BILSCRN W CAD DIG, 07/21/2012. INDICATIONS: screening Calculator Name NCI Breast Cancer Risk Assessment Tool 5 Year Breast Cancer Risk 1.80% Lifetime Breast Cancer Risk 8.90% Personal Breast Cancer No Personal Ovarian Cancer No Treatments None Family Cancers None LOCATION: [facility] BREAST COMPOSITION: The breasts are heterogeneously dense,which may obscure small masses. FINDINGS: DIAGNOSTIC CATEGORY 1--NEGATIVE. RIGHT BREAST: No significant suspicious finding. No significant changehas occurred. LEFT BREAST: No significant suspicious finding. No significant changehas occurred. RECOMMENDATIONS: ROUTINE MAMMOGRAM AND CLINICAL EVALUATION IN 12 MONTHS. PLEASE NOTE: A NORMAL MAMMOGRAM DOES NOT EXCLUDE THE POSSIBILITY OFBREAST CANCER. A CLINICALLY SUSPICIOUS PALPABLE LUMP SHOULD BE BIOPSIED. Dictated by: Sid Bojorquez M.D. on 10/07/2023 at 15:51 Approved by: Sid Bojorquez M.D. on 10/07/2023 at 15:52 Dictated By: Sid Bojorquez M.D. Signed By:10/07/23 1553 DD/ 1552 TD/TT: Manager Corporate Responsibility: us Generic External Data Provider [facility] Final Result documented in this encounter Visit Diagnoses Not on filedocumented in this encounter Care Teams Academic Support Center Director Relationship Specialty Start Date End Date Tracey Johnson PA [address] [place] [address] Dr [place]a [place] [id number] PCP - Medical [place] [employer] 08/15/13 02/14/99 documented as of this encounter
--- OUTSIDE RECORDS SUMMARY | 2024-11-28 15:22 | XMS_ITS | Encounter Summary ---
Author Organization [facility] Address [address] [place] [address] Care Team Providers Care Container Washer Name Role Phone Tracey Johnson Unavailable Encounter Details Date Type Department Care Team ([facility] Contact Info) Description 09/16/2022 Abstract [facility] [address] [place] [address] Tracey Johnson PA [address] [place], [facility]11 Social History Tobacco Use Types Packs/Day Years Used Date Smoking Tobacco: Never Tobacco Cessation:Counseling Given: Not Answered Alcohol Use Standard Drinks/Week Comments Never 0 (1 standard drink = 0.6 oz pure alcohol) Caffeine intake: 2-3 cups per day coffee Comments Unknown Sex and Gender Information Value Date Recorded Sex Assigned at Not on file Legal Sex Female 6:48 PM EDT Gender Identity Not on file Sexual Orientation Not on file COVID-19 Exposure Response Date Recorded In the last 10 days, have yo u been in contact with someone who was confirmed or suspected to have Coronavirus/COVID-19? No / Unsure 09/16/2022 1:31 PM EDT documented as of this encounter Plan of Treatment Upcoming Encounters Date Type Department Care Team ([facility] Contact Info) Description 12/03/2025 4:00 PM EDT Procedure Visit [facility] [address] [place] [address] Leo Garrett DO [address] [place], [place] [id number] documented as of this encounter Visit Diagnoses Not on filedocumented in this encounter Care Teams Container Washer Relationship Specialty Start Date End Date Tracey Johnson PA [address] [place], [place] [id number] PCP - Medical [place] [employer] 08/15/13 02/14/99 documented as of this encounter
--- OUTSIDE RECORDS SUMMARY | 2024-11-28 15:22 | XMS_ITS | Encounter Summary ---
Author Organization [facility] Address [address] [place] [address] Care Team Providers Care Die Repairer Trimmer Dies Name Role Phone Tracey Johnson Unavailable Encounter Details Date Type Department Care Team ([facility] Contact Info) Description 10/05/2022 Orders Only [facility] [address] [place] [address] [place] [phone] A, Unknown Practice [address] [place], [place] [phone] Social History Tobacco Use Types Packs/Day Years [...] Encounters Date Type Department Care Team (Late Contact Info) Description 12/03/2025 4:00 PM EDT Procedure Visit [facility] [address] [place] [address] Leo Garrett DO [address] [place] [address] documented as of this encounter Procedures Procedure Name Priority Date/Time Associated Diagnosis Comments SCANNED LABS Routine 10/02/2022 9:07 AM EDT SCANNED LABS Routine 10/02/2022 8:35 AM EDT documented in this encounter Results * SCANNED LABS (10/02/2022 9:07 AM EDT) us Unknown Practice A LAB CHG PERFORMABLES Final Re sult * SCANNED LABS (10/02/2022 8:35 AM EDT) us Unknown Practice A LAB CHG PERFORMABLES Final Re sult documented in this encounter Visit Diagnoses Not on filedocumented in this encounter Care Teams Die Repairer Trimmer Dies Relationship Specialty Start Date End Date Tracey Johnson PA [address] [place] [address] PCP - Medical [place] [employer] 08/15/13 02/14/99 documented as of this encounter
--- OUTSIDE RECORDS SUMMARY | 2024-11-28 15:22 | XMS_ITS | Encounter Summary ---
Author Organization [facility] Address [address] [place] [address] Care Team Providers Care Odd Ticket Clerk Name Role Phone Tracey Johnson Unavailable Encounter Details Date Type Department Care Team (Latest Contact Info) Description 11/23/2024 Travel Social History Tobacco Use Types Packs/Day Years [...] Upcoming Encounters Date Type Department Care Team ( Contact Info) Description 12/03/2025 4:00 PM EDT Procedure Visit [facility] [address] [facility] [place] [address] Leo Garrett DO [address] [place], [facility] documented as of this encounter Visit Diagnoses Not on filedocumented in this encounter Care Teams Odd Ticket Clerk Relationship Specialty Start Date End Date Tracey Johnson PA [address] [place], [place] [phone] PCP - Medical [place] [employer] 08/15/13 02/14/99 documented as of this encounter
--- OUTSIDE RECORDS SUMMARY | 2024-11-28 15:22 | XMS_ITS | Encounter Summary ---
Author Organization [facility] Address [address] [place] [address] Care Team Providers Care Hammer Heater Name Role Phone ElizabethTracey Unavailable Encounter Details Date Type Department Care Team (Late Contact Info) Description 11/25/2023 Clinisync Result Encounter [facility] External Department Unsolicited [...] Upcoming Encounters Date Type Department Care Team ([facility] Contact Info) Description 12/03/2025 4:00 PM EDT Procedure Visit [facility] [address] [place] [address] Leo Garrett DO [address] [place], [place] [id number] documented as of this encounter Procedures Procedure Name Priority Date/Time Associated Diagnosis Comments XR DEXA AXIAL SKELETON 11/25/2023 4:56 AM EDT documented in this encounter Results * XR DEXA AXIAL SKELETON (11/25/2023 4:56 AM EDT) Anatomical Region Laterality Modality Other 11/25/2023 4:56 AM EDT Narrative 11/25/2023 4:58 AM EDT [address] [address] XRay Report Signed Patient: ELENA BATES MR#: [id number] : 1965 Acct:[id number] Age/Sex: 58 / F ADM Date: 11/24/23 Loc: RAD Attending Dr: Tracey Hopkins Ordering Physician: Tracey Hopkins Date of Service: 11/24/23 Procedure(s): XR DEXA axial skeleton Accession Number(s): [id number] cc: SHEILA NEGRON ; Tracey Hopkins [place] [id number] Patient Name: ELENA BATES MRN: [id number] date: 1965 Sex: F Assigned Patient Location: [facility] Current Patient Location: Accession/Order Number: [id number] Exam Date: 11/24/2023 15:15 Report Date: 11/25/2023 04:56 At the request of: TRACEY HOPKINS Procedure: XR DEXA axial skeleton EXAMINATION: XR DEXA axial skeleton HISTORY: Screening Osteoporosis COMPARISON: No relevant comparison available. TECHNIQUE: Dual-energy X-ray absorptiometry (DXA) was performed. FINDINGS: SPINE ANALYSIS: Average bone mineral density is 1.080 g/cm2. T-score (standard deviation relative to young adult mean): -0.8 . HIP ANALYSIS: Lowest bone mineral density is within the left femoral neck, 0.751 g/cm2. T-score (standard deviation relative to young adult mean): -2.1 . XR/XR DEXA axial skeleton IMPRESSION: World Health Organization Classification: Osteopenia - Moderate Fracture Risk FRAX: Cannot be calculated. Pharmacologic treatment recommendations * No uniform recommendation applies to all patients. Management plans must be individualized. * Consider initiating pharmacologic treatment in postmenopausal women and men >= 50 years of age who have the following: Primary fracture prevention: * T-score <= - 2.5 at the femoral neck, total hip, lumbar spine, 33% radius (some uncertainty with existing data) by DXA. * Low bone mass (osteopenia: T-score between - 1.0 and - 2.5) at the femoral neck or total hip by DXA with a 10-year hip fracture risk >= 3% or a 10-year major osteoporosis-related fracture risk >= 20% (i.e., clinical vertebral, hip, forearm, or proximal humerus) based on the US-adapted FRAXregistered model. Secondary fracture prevention: * Fracture of the hip or vertebra regardless of BMD [4, 5]. * Fracture of proximal humerus, pelvis, or distal forearm in persons with low bone mass (osteopenia: T-score between - 1.0 and - 2.5). The decision to treat should be individualized in persons with a fracture of the proximal humerus, pelvis, or distal forearm who do not have osteopenia or low BMD [12, 13]. Gilmar MS, Winnie SL, Rico KL, Ene EM, Angela KG, AJ, Ilya ES. The clinician's guide to prevention and treatment of osteoporosis. Osteoporos Int. 2021;33(10):8076-8568. doi: 10.1007/m21632-974-19492-u. Epub 2021Jun 12. Erratum in: Osteoporos Int. 2021Sep 11;: PMID: 58492739; PMCID: [id number]. Electronically authenticated by: SID BOJORQUEZ Date: 11/25/2023 04:56 Dictated By: Sid Bojorquez M.D. Signed By: 11/25/23457 DD/ 5 TD/TT: Detail Supervisor: Procedure Note Radiology, Radiologist, - 11/25/2023 [place] [address] XRay Report Signed Patient: ELENA BATES#: [id number] : 1965Acct:[id number] Age/Sex: 58 / FADM Date: 11/24/23 Loc: RAD Attending Dr: Tracey Hopkins Ordering Physician: Tracey Hopkins Date of Service: 11/24/23 Procedure(s): XR DEXA axial skeleton Accession Number(s): [id number] cc: SHEILA NEGRON ; Tracey Hopkins [place] [address] Patient Name: ELENA BATES MRN: [id number] date: 1965 Sex: F Assigned Patient Location: [facility] Current Patient Location: Accession/Order Number: [id number] Exam Date: 11/24/2023 15:15 Report Date: 11/25/2023 04:56 At the request of: TRACEY HOPKINS Procedure: XR DEXA axial skeleton EXAMINATION: XR DEXA axial skeleton HISTORY: Screening Osteoporosis COMPARISON: No relevant comparison available. TECHNIQUE: Dual-energy X-ray absorptiometry (DXA) was performed. FINDINGS: SPINE ANALYSIS: Average bone mineral density is 1.080 g/cm2. T-score (standard deviation relative to young adult mean): -0.8 . HIP ANALYSIS: Lowest bone mineral density is within the left femoral neck, 0.751 g/cm2. T-score (standard deviation relative to young adult mean): -2.1 . XR/XR DEXA axial skeleton IMPRESSION: World Health Organization Classification: Osteopenia - Moderate FractureRisk FRAX: Cannot be calculated. Pharmacologic treatment recommendations * No uniform recommendation applies to all patients. Management plans mustbe individualized. * Consider initiating pharmacologic treatment in postmenopausal women andmen >= 50 years of age who have the following: Primary fracture prevention: * T-score <= - 2.5 at the femoral neck, total hip, lumbar spine, 33%radius (some uncertainty with existing data) by DXA. * Low bone mass (osteopenia: T-score between - 1.0 and - 2.5) at thefemoral neck or total hip by DXA with a 10-year hip fracture risk >= 3% or [id number] major osteoporosis-related fracture risk >= 20% (i.e., clinical vertebral, hip, forearm, or proximal humerus) based on the US-adapted FRAXregisteredmodel. Secondary fracture prevention: * Fracture of the hip or vertebra regardless of BMD [4, 5]. * Fracture of proximal humerus, pelvis, or distal forearm in persons withlow bone mass (osteopenia: T-score between - 1.0 and - 2.5). The decision totreat should be individualized in persons with a fracture of the proximalhumerus, pelvis, or distal forearm who do not have osteopenia or low BMD [12, 13]. Gilmar MS, Winnie SL, Rico KL, Ene EM, Angela KG, AJ,Ilya ES. The clinician's guide to prevention and treatment of osteoporosis.Osteoporos Int. 2021;33(10):2947-0192. doi: 10.1007/d85175-446-02504-o. Epub . Erratum in: Osteoporos Int. 2021Sep 11;: PMID: 83593195; PMCID: [id number]. Electronically authenticated by: SID BOJORQUEZ Date: 11/25/2023 04:56 Dictated By: Sid Bojorquez M.D. Signed By:11/25/23457 DD/ 5 TD/TT: Detail Supervisor: Generic External Data Provider [facility] Final Result documented in this encounter Visit Diagnoses Not on filedocumented in this encounter Care Teams Hammer Heater Relationship Specialty Start Date End Date Tracey Hopkins PA [address] [place] [address] [place] [address] PCP - Medical [place] [employer] 08/15/13 02/14/99 documented as of this encounter
--- OUTSIDE RECORDS SUMMARY | 2024-11-28 15:22 | XMS_ITS | Encounter Summary ---
Author Organization [facility] Address [address] [place] [address] Care Team Providers Care Email Deployment Specialist Name Role Phone Tracey Johnson DASIA Unavailable Encounter Details Date Type Department Care Team (Late Contact Info) Description 11/28/2024 Bamboo flowsheet ZOILA SORENSON [address] [place] [address] Leo Garrett, DO [address] [place], [facility]11 Social History Tobacco Use Types Packs/Day Years [...] PM EDT Procedure Visit ZOILA SORENSON [address] [place] [address] Leo Garrett, DO [address] [place], [facility] documented as of this encounter Visit Diagnoses Not on filedocumented in this encounter Care Teams Email Deployment Specialist Relationship Specialty Start Date End Date Tracey Johnson PA [address] [place] [address] [place] [address] PCP - Medical [place] [employer] 08/15/13 02/14/99 documented as of this encounter
--- OUTSIDE RECORDS SUMMARY | 2024-11-28 15:22 | XMS_ITS | Clinical Summary ---
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 Pure hypercholesterolemia 09/16/2022 Encounters Date Type Department Care Team Description 11/28/2024 8:30 AM EDT Office Visit [facility] SOREN[facility] [address] [place] [address] Leo Garrett DO Well woman exam with routine gynecological exam; Encounter for screening mammogram for malignant neoplasm of breast; Postmenopausal state; Cervical polyp 11/28/2024 Bamboo flowsheet [facility] SOREN[facility] [address] [place] [address] Leo Garrett DO 11/23/2024 Travel 10/03/2024 Clinisync Result Encounter N[facility]S External Department Unsolicited Kierra Negron MD from Last 3 Months Family History Relation Name Status Comments Father Alive Mother Alive Social History Tobacco Use Types Packs/Day Years [...] on file Sexual Orientation Not on file Last Filed Vital Signs Vital Sign Reading Time Taken Comments Blood Pressure 114/72 11/28/2024 8:37 AM EDT Pulse - - Temperature - - Respiratory Rate 18 07/11/2024 3:49 PM EDT Oxygen Saturation - - Inhaled Oxygen Concentration - - Weight 77.9 kg (171 lb 12 oz) 11/28/2024 8:37 AM EDT Height 152.4 cm (5') 07/11/2024 3:49 PM EDT Body Mass Index 33.54 07/11/2024 3:49 PM EDT Plan of Treatment Upcoming Encounters Date Type Department Care Team (Late st Contact Info) Description 12/03/2025 4:00 PM EDT Procedure Visit [facility] [address] [place] [address] Leo Garrett DO [address] [place], [place] [phone] Health Maintenance Due Date Last Done Comments CT Colonography 1965 Colonoscopy 1965 FIT 1965 FOBT 1965 Sigmoidoscopy 1965 Mammogram 10/06/2024 10/07/2023, 09/15, 09/30/2022, Additional history exists Influenza Vaccine (#1) 2024 Colorectal Cancer Screening 03/10/2025 FIT-DNA 03/10/2025 03/10/2022, 10/19/2018 Pap Smear 11/02/2026 11/03/2023, 06/13/2020 Cervical Cancer Screening 10/10/2027 HPV/Cotest 10/10/2027 10/09/2022, 06/13/2020 Procedures Procedure Name Priority Date/Time Associated Diagnosis Comments ALL CBC WITH AUTO DIFF Routine 10/03/2024 6:32 AM EDT ALL THYROID STIM HORMONE Routine 10/03/2024 6:14 AM EDT ALL LIPID PROFILE (FASTING) Routine 10/03/2024 6:14 AM EDT [facility] CMP (CMP) (FOR REMOTE [facility] USE) Routine 10/03/2024 6:14 AM EDT PAP SMEAR Routine 11/03/2023 12:00 AM EDT MM TOMOSYNTHESIS SCREENING BI 10/07/2023 3:52 PM EDT THINPREP PAP AND HPV MRNA E6/E7 W/RFL HPV 16,18/45 Routine 10/09/2022 9:36 AM EDT Well woman exam with routine gynecological exam LAB COLOGUARD COLON CANCER SCREEN Routine 03/10/2022 from Last 3 Months or Most Recently Relevant to Health Maintenance Results * (ABNORMAL) ALL CBC WITH AUTO DIFF (10/03/2024 6:32 AM EDT) TBH WBC 3.8(L) 4.0 - 11.0 10 3/uL TBH TBH RBC 5.03 4.20 - 5.40 10 6/uL TBH TBH HGB 14.1 12.0 - 16.0 g/dL TBH TBH HCT 43.1 36.0 - 48.0 % TBH TBH MCV 85.7 81.0 - 99.0 fL TBH TBH MCH 28.0 26.7 - 34.0 pg TBH TBH MCHC 32.7 29.9 - 35.2 g/dL TBH TBH RDW 12.7 11.0 - 15.0 % TBH TBH PLT 214 150 - 450 10 3/uL TBH TBH MPV 10.7 9.5 - 13.5 fL TBH NEUTROPHILS PERCENT AUTO 49.9 43.0 - 75.0 % TBH LYMPHOCYTES PERCENT AUTO 40.6 20.5 - 60.0 % TBH MONOCYTES PERCENT AUTO 5.8 1.7 - 12.0 % TBH TBH EO % 2.6 0.9 - 7.0 % TBH BASOPHILS PERCENT AUTO 0.8 0.2 - 2.0 % TBH IMMATURE GRANULOCYTES PCT AUTO 0.3 0.0 - 0.5 % TBH NEUTROPHILS ABSOLUTE AUTO 1.9 1.4 - 6.5 10 3/uL TBH LYMPHOCYTES ABSOLUTE AUTO 1.6 1.2 - 3.8 10 3/uL TBH MONOCYTES ABSOLUTE AUTO 0.2(L) 0.3 - 0.8 10 3/uL TBH TBH EO # 0.1 0.0 - 0.7 10 3/uL TBH BASOPHILS ABSOLUTE AUTO 0.0 0.0 - 0.1 10 3/uL TBH IMMATURE GRANULOCYTES ABS AUTO 0.01 0.00 - 0.03 10 3/uL TBH 10/03/2024 6:32 AM EDT 10/03/2024 11:29 AM EDT Narrative [facility] - 10/03/2024 11:40 AM EDT us Kierra Negron MD [facility] Final Result [facility] * CCF CMP (CMP) (FOR REMOTE [facility] USE) (10/03/2024 6:14 AM EDT) SODIUM 142 136 - 145 mmol/L TBH POTASSIUM 4.1 3.5 - 5.1 mmol/L TBH CHLORIDE 104 98 - 107 mmol/L TBH CARBON DIOXIDE 28.0 21.0 - 32.0 mmol/L TBH ANION GAP 14.1 TBH GLUCOSE 81 74 - 106 mg/dL TBH BLOOD UREA NITROGEN 15.0 7.0 - 18.0 mg/dL TBH CREATININE 0.72 0.55 - 1.02 mg/dL TBH TBH EGFR-AF FILIPINO >60 >=60 mL/min/1. 73m 2 TBH TBH EGFR-NON AF FILIPINO >60 >=60 mL/min/1. 73m 2 TBH BUN CREATININE RATIO 20.8 TBH CALCIUM 9.3 8.5 - 10.1 mg/dL TBH BILIRUBIN TOTAL 0.3 0.2 - 1.0 mg/dL TBH ASPARTATE AMINO TRANSFERASE 21 15 - 37 U/L TBH ALANINE AMINOTRANSFERASE 26 14 - 59 U/L TBH ALKALINE PHOSPHATASE 50 46 - 116 U/L TBH TOTAL PROTEIN 7.7 6.4 - 8.2 g/dL TBH ALBUMIN LEVEL 4.1 3.4 - 5.0 g/dL TBH GLOBULIN 3.6 g/dL TBH ALBUMIN GLOBULIN RATIO 1.1 TBH 10/03/2024 6:14 AM EDT 10/03/2024 10:09 AM EDT Narrative [facility] - 10/03/2024 12:34 PM EDT Kierra YANISYANN-MARIE Final [facility] * ALL THYROID STIM HORMONE (10/03/2024 6:14 AM EDT) THYROID STIMULATING HORMONE 3.359 0.358 - 3.740 uIU/mL TB 10/03/2024 6:14 AM EDT 10/03/2024 10:09 AM EDT Narrative [facility] - 10/03/2024 12:34 PM EDT Kierra BUCHANAN Final Result [facility] * (ABNORMAL) ALL LIPID PROFILE (FASTING) (10/03/2024 6:14 AM EDT) TRIGLYCERIDES 112 <=150 mg/dL TB CHOLESTEROL 251(H) <=200 mg/dL TB HDL CHOLESTEROL 46 40 - 60 mg/dL TB Comment: > or =60 mg/dl - LOW CARDIOVASCULAR RISK <40 mg/dl - HIGH CARDIOVASCULAR RISK LDL CHOLESTEROL CALCULATED 183.0 mg/dL TB Comment: <100 mg/dl OPTIMAL 100-129 mg/dl NEAR OR ABOVE OPTIMAL 130-159 mg/dl BORDERLINE HIGH 160-189 mg/dl HIGH >190 mg/dl VERY HIGH VLDL CHOLESTEROL 22.4 mg/dL TB CHOL HDL RATIO 5.5 TB Comment: 3.3 - 4.4 LOW RISK 4.4 - 7.1 AVERAGE RISK 7.1 - 11.0 MODERATE RISK >11.0 HIGH RISK 10/03/2024 6:14 AM EDT 10/03/2024 10:09 AM EDT Narrative [facility] - 10/03/2024 12:34 PM EDT us Kierra Negron MD [facility] Final Result Performing Organization Address City/[facility]/ZIP Co de Phone Number CLIN[facility]NC TBH * Pap Smear (11/03/2023 12:00 AM EDT) Swab Cervical swab / Unknown us Tracey [facility] CYTOLOGY ORDERABLES Final Re sult Performing Organization Address City/[facility] Co de Phone Number EXTERNAL LAB * MM TOMOSYNTHESIS SCREENING BI (10/07/2023 3:52 PM EDT) Anatomical Region Laterality Modality Other 10/07/2023 3:52 PM EDT Narrative 10/07/2023 3:[place] [address] Mammography Report Signed Patient: ELENA BATES MR#: [id number] : 1965 Acct:[id number] Age/Sex: 58 / F ADM Date: 10/06/23 Loc: MAMMO Attending Dr: Leo Garrett D.O. Ordering Physician: Leo Garrett D.O. Results: Date of Service: 10/06/23 Follow Up: Procedure(s): MM tomosynthesis screening BI Accession Number(s): [id number] cc: KIERRA NEGRON ; Leo Garrett D.O. Patient Name: ELENA BATES MR#: [id number] : 1965 Exam Date: 10/06/2023 Ordering Doctor: [...] Treatments None Family Cancers None LOCATION: [facility] BREAST COMPOSITION: The breasts are heterogeneously dense,which [...] Bojorquez M.D. Signed By: 10/07/23 1553 DD/ 1552 TD/TT: Medical Assistant Internal Medicine: Procedure Note Radiology, Radiologist, MD - 10/07/2023 [place] [address] Mammography Report Signed Patient: ELENA BATES AMR#: [id number] : 1965Acct:[id number] Age/Sex: 58 / FADM Date: 10/06/23 Loc: MAMMO Attending Dr: Leo Garrett D.O. Ordering Physician: Leo Garrett D.O.Results: Date of Service: 10/06/23Follow Up: Procedure(s): MM tomosynthesis screening BI Accession Number(s): [id number] cc: KIERRA NEGRON Corey D.O. Patient Name: ELENA BATES MR#: [id number] : 1965 Exam Date: 10/06/2023 Ordering Doctor: DR Leo Garrett . RADIOLOGY REPORT PROCEDURE: MM TOMOSYNTHESIS SCREENING BI COMPARISON: MM TOMOSYNTHESIS SCREENING BI, 09/30/2022. MG MAMM [id number] BLOSSOM CAD, 06/19/2020. MG MAMM SCREEN BLOSSOM W CAD, 01/25/2019. MG MAMM BILSCRN W CAD DIG, 07/21/2012. INDICATIONS: screening Calculator Name NCI Breast Cancer Risk Assessment Tool 5 Year Breast Cancer Risk 1.80% Lifetime Breast Cancer Risk 8.90% Personal Breast Cancer No Personal Ovarian Cancer No Treatments None Family Cancers None LOCATION: [facility] BREAST COMPOSITION: The breasts are heterogeneously dense,which [...] M.D. Signed By:10/07/23 1553 DD/ 1552 TD/TT: Medical Assistant Internal Medicine: Generic External Data Provider [facility] Final Result * THINPREP PAP AND HPV MRNA E6/E7 W/RFL HPV 16,18/45 (10/09/2022 9:36 AM EDT) Tracey [facility] BLOOD ORDERABLES Final Resul t EXTERNAL LAB * Cologuard?? colon cancer screening (03/10/2022) COLOGUARD RESULT REPORTABLE Negative Negative [facility] Comment: NEGATIVE TEST RESULT. A negative Cologuard result indicates a low likelihood that a colorectal cancer (CRC) or advanced adenoma (adenomatous polyps with more advanced pre-malignant features) is present. The chance that a person with a negative Cologuard test has a colorectal cancer is less than 1 in 1500 (negative predictive value >99.9%) or has an advanced adenoma is less than 5.3% (negative predictive value 94.7%). These data are based on a prospective cross-sectional study of 10,000 individuals at average risk for colorectal cancer who were screened with both Cologuard and colonoscopy. (Jake Giraldo al, N Engl J Med 2014;370(14):6570-3188) The normal value (reference range) for this assay is negative. COLOGUARD RE-SCREENING RECOMMENDATION: Periodic colorectal cancer screening is an important part of preventive healthcare for asymptomatic individuals at average risk for colorectal cancer. Following a negative Cologuard result, the [employer] and U.S. Multi-Society Task Force screening guidelines recommend a Cologuard re-screening interval of 3 years. References: [employer] Guideline for Colorectal Cancer Screening: https://www.cancer.org/cancer/cudxa-xwusek-ubbxsz/aqjsgbufh-vlstukhfr-pcbygoh/ac s-rec ommendations.html.; Blair DK, Andreina ROJO, Grant MasonK, Colorectal Cancer Screening: Recommendations for Physicians and Patients from the U.S. Multi-Society Task Force on Colorectal Cancer Screening , Am J Gastroenterology 2017; 112:5706-8812. TEST DESCRIPTION: Composite algorithmic analysis of stool DNA-biomarkers with hemoglobin immunoassay. Quantitative values of individual biomarkers are not reportable and are not associated with individual biomarker result reference ranges. Cologuard is intended for colorectal cancer screening of adults of either sex, 45 years or older, who are at average-risk for colorectal cancer (CRC). Cologuard has been approved for use by the U.S. FDA. The performance of Cologuard was established in a cross sectional study of average-risk adults aged 50-84. Cologuard performance in patients ages 45 to 49 years was estimated by sub-group analysis of near-age groups. Colonoscopies performed for a positive result may find as the most clinically significant lesion: colorectal cancer [4.0%], advanced adenoma (including sessile serrated polyps greater than or equal to 1cm diameter) [20%] or non- advanced adenoma [31%]; or no colorectal neoplasia [45%]. These estimates are derived from a prospective cross-sectional screening study of 10,000 individuals at average risk for colorectal cancer who were screened with both Cologuard and colonoscopy. (Jake Giraldo al, N Engl J Med 2014;370(14):3186-2465.) Cologuard may produce a false negative or false positive result (no colorectal cancer or precancerous polyp present at colonoscopy follow up). A negative Cologuard test result does not guarantee the absence of CRC or advanced adenoma (pre-cancer). The current Cologuard screening interval is every 3 years. ([employer] and U.S. Multi-Society Task Force). Cologuard performance data in a 10,000 patient pivotal study using colonoscopy as the reference method can be accessed at the following location: www.[employer].com/results. Additional description of the Cologuard test process, warnings and precautions can be found at www.cologuard.com. 03/10/2022 Kierra Negron MD LAB MOLECULAR DIAGNOSTICS ORDERA BK Final Result [facility] from Last 3 Months or Most Recently Relevant to Health Maintenance Insurance [employer] Care Teams Oil Pipeline Dispatcher Relationship Specialty Start Date End Date Tracey Johnson PA [address] [place] [address] [place] [address] PCP - Medical [place] [employer] 08/15/13 02/14/99
--- OUTSIDE RECORDS SUMMARY | 2024-11-28 15:23 | XMS_ITS | CCD ---
Author Organization [facility] Care Team Providers Care Answering Service Telephone Operator Name Role Phone DR KIERRA NEGRON Attending Unavailable MIGDALIA, DR SOSA Consulting Unavailable DR KIERRA NEGRON Admitting Unavailable Kierra Negron MD Primary Care Provider Tracey Sewell Unavailable RICHARD RODGERS Attending Unavailable TRACEY HOPKINS Attending Unavailable Allergies Allergy Classification Reported Allergen(s) Allergy Type Date of Onset Reaction(s) Facility (1 source) Penicillins Drug allergy (disorder) [facility] Repository (9 sources) Penicillins Drug Allergy Anaphylaxis, Rash, Shortness of breath, Swelling, Unknown [facility] Medications Current Medications Medication Drug Class(es) Dates Sig (Normalized) Sig (Original) azithromycin 250 mg oral tablet (1 source) Macrolide Antimicrobial Start: 01-25-2024 End: 01-30-2024 take 1 tablet by mouth once daily azithromycin (Zithromax) 250 MG tablet Indications: Bronchitis Take 1 tablet (250 mg) by mouth Daily for 5 days 6 tablet 01/25/2024 01/30/2024 Active valACYclovir 1000 mg oral tablet (9 sources) Herpesvirus Nucleoside Analog DNA Polymerase Inhibitor, Herpes Simplex Virus Nucleoside Analog DNA Polymerase Inhibitor, Herpes Zoster Virus Nucleoside Analog DNA Polymerase Inhibitor Start: 12-22-2022 take 1 tablet by mouth twice daily valACYclovir (Valtrex) 1 g tablet Indications: Herpes circinatus bullosus (HCC) TAKE 1 TABLET BY MOUTH TWICE A DAY FOR 5 DAYS 10 tablet 2 12/22/2022 Active Completed/Discontinued Medications Medication Drug Class(es) Dates Sig (Normalized) Sig (Original) aspirin 81 mg chewable tablet (3 sources) Platelet Aggregation Inhibitor, Nonsteroidal Anti-inflammatory Drug End: 11-03-2023 ASPIRIN 81 MG chewable tablet 1 (one) time each day at the same time. 11/03/2023 Discontinued (Other) Problems Problem Classification Problem Date Documented Date Episodic/Chronic Chronic obstructive pulmonary disease and bronchiectasis (1 source) Bronchitis; Translations: [Bronchitis, not specified as acute or chronic] 01-25-2024 Episodic Disorders of lipid metabolism (9 sources) Pure hypercholesterolemia; Translations: [Pure hypercholesterolemia, unspecified] Onset: 09-16-2022 09-16-2022 Chronic Other acquired deformities (2 sources) Contracture of joint of left ankle; Translations: [Contracture, left ankle] 07-11-2024 Chronic Other connective tissue disease (2 sources) Calcaneal spur of left foot; Translations: [Calcaneal spur, left foot] 07-11-2024 Episodic Other connective tissue disease (2 sources) Plantar fasciitis; Translations: [Plantar fascial fibromatosis] 07-11-2024 Episodic Other inflammatory condition of skin (9 sources) Dermatitis herpetiformis; 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] Onset: 09-16-2022 09-16-2022 Chronic Residual codes; unclassified (2 sources) Postmenopausal state; Translations: [Asymptomatic menopausal state] 11-03-2023 Episodic Results Test Name Value Interpretation Reference Range Facility ALL CBC WITH AUTO DIFFon BASOPHILS ABSOLUTE AUTO 0 [facility] Basophils/100 WBC (Bld) 0.8 % 0.2 - 2.0 % [facility] Eosinophils/100 WBC (Bld) 2.6 % 0.9 - 7.0 % [facility] Erythrocyte distribution width (RBC) [Ratio] 12.7 % 11.0 - 15.0 % [facility] Hematocrit (Bld) [Volume fraction] 43.1 % 36.0 - 48.0 % [facility] Hemoglobin (Bld) [Mass/Vol] 14.1 g/dL 12.0 - 16.0 g/dL [facility] IMMATURE GRANULOCYTES ABS AUTO 0.01 [facility] Immature granulocytes/100 WBC (Bld) 0.3 % 0.0 - 0.5 % [facility] Interpretation and review of laboratory results Abnormal [facility] LYMPHOCYTES ABSOLUTE AUTO 1.6 [facility] Lymphocytes/100 WBC (Bld) 40.6 % 20.5 - 60.0 % [facility] MCH (RBC) [Entitic mass] 28 pg 26.7 - 34.0 pg [facility] MCHC (RBC) [Mass/Vol] 32.7 g/dL 29.9 - 35.2 g/dL [facility] MCV (RBC) [Entitic vol] 85.7 fL 81.0 - 99.0 fL [facility] MONOCYTES ABSOLUTE AUTO 0.2 Low [facility] Monocytes/100 WBC (Bld) 5.8 % 1.7 - 12.0 % [facility] NEUTROPHILS ABSOLUTE AUTO 1.9 [facility] Neutrophils/100 WBC (Bld) 49.9 % 43.0 - 75.0 % [facility] Platelet mean volume (Bld) [Entitic vol] 10.7 fL 9.5 - 13.5 fL [facility] TBH EO # 0.1 [facility] TBH PLT 214 [facility] TBH RBC 5.03 [facility] TBH WBC 3.8 Low [facility] IGP,APTIMA HPV,AGE GDLNon -2023 AGE GDLN ACOG TESTING Note . [facility] Comment on above: TESTS RESULT FLAG UN ITS REF RANGE LAB Clinician Provided Cytology Information Source.............Cervix;Endocervix No. of containers..01 ThinPrep Vial Age Algo ACOG Aarti... 28- FLAG LEGEND: L-Low Normal,H-High Normal,LL-Alert Low,HH-Alert High <-Panic Low,>-Panic High,A-Abnormal,AA-Critical Abnormal Performed at: 01 =G [address] [place] [address] Jasmyne Cabrera MD, HPV APTIMA Negative Negative [facility] Comment on above: This nucleic acid am plification test detects fourteen high- risk HPV types (16,18,31,33,35,39,45,51,52,56,58,59,66,68) without differentiation. Performed at: = - [facility], [place] [id number] Mold Inspector: Jasmyne Cabrera MD, Phone: [phone] Performed at: [facility], [place] [id number] Mold Inspector: Jasmyne Cabrera MD, Phone: [phone] IGP, APTIMA HPV, RFX 16/18,45 Note . [facility] Comment on above: TESTS RESULT FLAG UN ITS REF RANGE LAB DIAGNOSIS: 02 NEGATIVE FOR INTRAEPITHELIAL LESION OR MALIGNANCY. CELLULAR CHANGES ASSOCIATED WITH ATROPHY ARE PRESENT. Specimen adequacy: 02 Satisfactory for evaluation. Endocervical and/or squamous metaplastic cells (endocervical component) are present. Performed by: 02 Lynette Vee Pedicurist (ASCP) . 02 Note: Note 02 The Pap smear is a screening test designed to aid in the detection of premalignant and malignant conditions of the uterine cervix. It is not a diagnostic procedure and should not be used as the sole means of detecting cervical cancer. Both false-positive and false-negative reports do occur. Test Methodology: Note 02 The [employer]3 Met[employer](R) Physician Coder was unable to read this specimen. Therefore a manual review was performed. FLAG LEGEND: L-Low Normal,H-High Normal,LL-Alert Low,HH-Alert High <-Panic Low,>-Panic High,A-Abnormal,AA-Critical Abnormal Performed at: 02 [facility] [address] [address] Jasmyne Cabrera MD, HPV Genotype Reflex Note 02 Criteria not met, HPV Genotype not performed. Criteria not met, HPV Genotype not performed. BRUSH-SPATULA CERVIX ENDOCERVIX [facility] CBC AUTO DIFFon 10-02-2021 BASO # 0.0 103/ul Normal 0.0-0.1 [facility] Comment on above: Performed By: #### H FPFCBC #### [facility] [address] [place] [address] Dr. Kp Kohler Basophils/100 WBC (Bld) 0.5 % Normal 0.2-2.0 [facility] Comment on above: Performed By: #### H FPFCBC #### [facility] [address] [place] [address] Dr. Kp Kohler EO # 0.1 103/ul Normal 0.0-0.7 [facility] Comment on above: Performed By: #### H FPFCBC #### [facility] [address] [place] [address] Dr. Kp Kohler Eosinophils/100 WBC (Bld) 3.8 % Normal 0.9-7.0 [facility] Comment on above: Performed By: #### H FPFCBC #### [facility] [address] [place] [address] Dr. Kp Kohler Erythrocyte distribution width (RBC) [Ratio] 12.9 % Normal 11.0-15.0 [facility] Comment on above: Performed By: #### H FPFCBC #### [facility] [address] [place] [address] Dr. Kp Kohler Hematocrit (Bld) [Volume fraction] 40.4 % Normal 36.0-48.0 [facility] Comment on above: Performed By: #### H FPFCBC #### [facility] [address] [place] [address] Dr. Kp Kohler Hemoglobin (Bld) [Mass/Vol] 13.4 g/dL Normal 12.0-16.0 [facility] Comment on above: Performed By: #### H FPFCBC #### [facility] [address] [place] [address] Dr. Kp Kohler IG # 0.01 10e3/ul Normal 0.00-0.03 [facility] Comment on above: Performed By: #### H FPFCBC #### [facility] [address] [place] [address] Dr. Kp Kohler IG % 0.3 % Normal 0.0-0.5 [facility] Comment on above: Performed By: #### H FPFCBC #### [facility] [address] [place] [address] Dr. Kp Kohler LYMPH # 1.1 103/ul Critically low 1.2-3.8 [facility] Comment on above: Performed By: #### H FPFCBC #### [facility] [address] [place] [address] Dr. Kp Kohler Lymphocytes/100 WBC (Bld) 29.2 % Normal 20.5-60.0 [facility] Comment on above: Performed By: #### H FPFCBC #### [facility] [address] [place] [address] Dr. Kp Kohler MCH (RBC) [Entitic mass] 28.3 pg Normal 26.7-34.0 [facility] Comment on above: Performed By: #### H FPFCBC #### [facility] [address] [place] [address] Dr. Kp Kohler MCHC (RBC) [Mass/Vol] 33.2 g/dL Normal 29.9-35.2 [facility] Comment on above: Performed By: #### H FPFCBC #### [facility] [address] [place] [address] Dr. Kp Kohler MCV (RBC) [Entitic vol] 85.4 fL Normal 81.0-99.0 [facility] Comment on above: Performed By: #### H FPFCBC #### [facility] [address] [place] [address] Dr. Kp Kohler MONO # 0.3 103/ul Normal 0.3-0.8 [facility] Comment on above: Performed By: #### H FPFCBC #### [facility] [address] [place] [address] Dr. Kp Kohler Monocytes/100 WBC (Bld) 8.1 % Normal 1.7-12.0 [facility] Comment on above: Performed By: #### H FPFCBC #### [facility] [address] [place] [address] Dr. Kp Kohler NEUT # 2.2 103/ul Normal 1.4-6.5 [facility] Comment on above: Performed By: #### H FPFCBC #### [facility] [address] [place] [address] Dr. Kp Kohler Neutrophils/100 WBC (Bld) 58.1 % Normal 43.0-75.0 [facility] Comment on above: Performed By: #### H FPFCBC #### [facility] [address] [place] [address] Dr. Kp Kohler Platelet mean volume (Bld) [Entitic vol] 10.0 fL Normal 9.5-13.5 [facility] Comment on above: Performed By: #### H FPFCBC #### [facility] [address] [place] [address] Dr. Kp Kohler PLT 215 103/ul Normal 150-450 [facility] Comment on above: Performed By: #### H FPFCBC #### [facility] [address] [place] [address] Dr. Kp Kohler RBC 4.73 106/ul Normal 4.20-5.40 [facility] Comment on above: Performed By: #### H FPFCBC #### [facility] [address] [address] [address] Kp Kohler WBC 3.7 103/ul Critically low 4.0-11.0 [facility] Comment on above: Performed By: #### H FPFCBC #### [facility] [address] [address] [address] Kp Kohler [facility] PROFILEon 10-02- 022 Albumin [Mass/Vol] 4.0 g/dL Normal 3.4-5.0 [facility] Comment on above: Performed By: #### H FPF #### [facility] [address] [place] [address] Dr. Kp Kohler Albumin/Globulin [Mass ratio] 1.1 {ratio} Normal [facility] Comment on above: Performed By: #### H FPF #### [facility] [address] [place] [address] Dr. Kp Kohler ALP [Catalytic activity/Vol] 62 U/L Normal 46-116 [facility] Comment on above: Performed By: #### H FPF #### [facility] [address] [place] [address] Dr. Kp Kohler ALT [Catalytic activity/Vol] 20 U/L Normal 14-59 [facility] Comment on above: Performed By: #### H FPF #### [facility] [address] [place] [address] Dr. Kp Kohler AST [Catalytic activity/Vol] 18 U/L Normal 15-37 [facility] Comment on above: Performed By: #### H FPF #### [facility] [address] [place] [address] Dr. Kp Kohler Bilirubin [Mass/Vol] 0.7 mg/dL Normal 0.2-1.0 [facility] Comment on above: Performed By: #### H FPF #### [facility] [address] [place] [address] Dr. Kp Kohler Calcium [Mass/Vol] 9.2 mg/dL Normal 8.5-10.1 [facility] Comment on above: Performed By: #### H FPF #### [facility] [address] [address] [address] Kp Kohler Chloride [Moles/Vol] 103 mmol/L Normal 98-107 [facility] Comment on above: Performed By: #### H FPF #### [facility] [address] [address] [address] Kp Kohler CHOL-HDL RATIO NORM SEE BELOW Normal [facility] Comment on above: Result Comment: 3.3 - 4.4 LOW RISK 4.4 - 7.1 AVERAGE RISK 7.1 - 11.0 MODERATE RISK >11.0 HIGH RISK Performed By: #### H FPF #### [facility] [address] [place] [address] Dr. Kp Kohler Cholesterol [Mass/Vol] 218 mg/dL Critically high <=200 [facility] Comment on above: Performed By: #### H FPF #### [facility] [address] [place] [address] Dr. Kp Kohler Cholesterol in HDL [Mass/Vol] 58 mg/dL Normal 40-60 [facility] Comment on above: Performed By: #### H FPF #### [facility] [address] [place] [address] Dr. Kp Kohler Cholesterol in LDL [Mass/Vol] 150.4 mg/dL Normal [facility] Comment on above: Performed By: #### H FPF #### [facility] [address] [place] [address] Dr. Kp Kohler Cholesterol.total/C holesterol in HDL [Mass ratio] 3.8 {ratio} Normal [facility] Comment on above: Performed By: #### H FPF #### [facility] [address] [address] [address] Kp Kohler CO2 [Moles/Vol] 28.6 mmol/L Normal 21.0-32.0 [facility] Comment on above: Performed By: #### H FPF #### [facility] [address] [address] [address] Kp Kohler Creatinine [Mass/Vol] 0.82 mg/dL Normal 0.55-1.02 [facility] Comment on above: Performed By: #### H FPF #### [facility] [address] [address] [address] Kp Kohler Globulin (S) [Mass/Vol] 3.5 g/dL Normal [facility] Comment on above: Performed By: #### H FPF #### [facility] [address] [address] [address] Kp Kohler Glucose [Mass/Vol] 82 mg/dL Normal 74-106 [facility] Comment on above: Performed By: #### H FPF #### [facility] [address] [address] [address] Kp Kohler HDL NORMAL > or = 60 mg/dl - LO W CARDIOVASCULAR RISK <40 mg/dl - HIGH CARDIOVASCULAR RISK Normal [facility] Comment on above: Performed By: #### H FPF #### [facility] [address] [address] [address] Kp Kohler LDL CALC NORMAL SEE BELOW Normal [facility] Comment on above: Result Comment: <100 mg/dl OPTIMAL 100 - 129 mg/dl NEAR OR ABOVE OPTIMAL 130 - 159 mg/dl BORDERLINE HIGH 160 - 189 mg/dl HIGH >190 mg/dl VERY HIGH Performed By: #### H FPF #### [facility] [address] [place] [address] Dr. Kp Kohler Potassium [Moles/Vol] 3.5 mmol/L Normal 3.5-5.1 [facility] Comment on above: Performed By: #### H FPF #### [facility] [address] [address] [address] Kp Kohler Protein [Mass/Vol] 7.5 g/dL Normal 6.4-8.2 [facility] Comment on above: Performed By: #### H FPF #### [facility] [address] [place] [address] Dr. Kp Kohler Sodium [Moles/Vol] 140 mmol/L Normal 136-145 [facility] Comment on above: Performed By: #### H FPF #### [facility] [address] [address] [address] Kp Kohler Triglyceride [Mass/Vol] 48 mg/dL Normal <=150 [facility] Comment on above: Performed By: #### H FPF #### [facility] [address] [address] [address] Kp Kohler TSH 2.926 uIU/mL Normal 0.358-3.740 [facility] Comment on above: Performed By: #### H FPF #### [facility] [address] [address] [address] Kp Kohler Urea nitrogen [Mass/Vol] 13.0 mg/dL Normal 7.0-18.0 [facility] Comment on above: Performed By: #### H FPF #### [facility] [address] [address] [address] Kp Kohler Urea nitrogen/Creatinine [Mass ratio] 15.9 mg/mg Normal [facility] Comment on above: Performed By: #### H FPF #### [facility] [address] [address] [address] Kp Kohler VLDL CALC 9.6 mg/dL Normal [facility] Comment on above: Performed By: #### H FPF #### [facility] [address] [address] [address] Kp Kohler Vital Signs Date Time Vital Sign Value Performing Clinician Philly silva 07-11-2024 15:49-0400 Body height 152.4 cm Richard Rodgers DPM Work Phone: [facility] 07-11-2024 15:49-0400 Body mass index (BMI) [Ratio] 32.22 kg/m2 Richard Rodgers DPM Work Phone: [facility] 07-11-2024 15:49-0400 Body weight 74.84 kg Richard Rodgers DPM Work Phone: [facility] 07-11-2024 15:49-0400 Respiratory rate 18 /min Richard Rodgers DPM Work Phone: [facility] 11-03-2023 14:07-0400 Body mass index (BMI) [Ratio] 33.61 kg/m2 Tracey FORMAN Work Phone: [facility] 11-03-2023 14:07-040 Body weight 78.07 kg Tracey FORMAN Work Phone: [facility] 11-03-2023 14:07-0400 Diastolic blood pressure 78 mm[Hg] Tracey FORMAN Work Phone: [facility] 11-03-2023 14:07-0400 Systolic blood pressure 118 mm[Hg] Tracey FORMAN Work Phone: [facility] Encounters Encounter Date Encounter Type Care Provider Facility Start: 10-03-2024 End: 10-03-2024 [facility] Result Encounter Kierra Negron MD Work Phone: [facility] Unsolicited Start: 10-03-2024 End: 10-03-2024 [facility] Result Encounter Kierra Negron MD Work Phone: [facility] Unsolicited Start: 07-11-2024 End: 07-11-2024 Office outpatient new 30 minutes Richard Rodgers DPM Work Phone: [facility] Comment on above: Heel spur, left (Clarita ant Dx); Contracture of left ankle; Plantar fasciitis Start: 07-11-2024 End: 07-11-2024 ambulatory RICHARD RODGERS Not Available Start: 07-11-2024 End: 07-11-2024 Bamboo flowsheet Richard Rodgers DPM Work Phone: [facility] Start: 07-11-2024 End: 07-11-2024 Bamboo flowsheet Richard Rodgers DPM Work Phone: [facility] Start: 01-25-2024 End: 01-25-2024 Telephone encounter Kierra Negron MD Work Phone: [facility] Start: 11-03-2023 End: 11-03-2023 Bamboo flowsheet Tracey FORMAN Work Phone: [facility] Start: 11-03-2023 End: 11-09-2023 Bamboo flowsheet Tracey FORMAN Work Phone: [facility] Start: 11-03-2023 End: 11-09-2023 [facility]inis[facility] Result Encounter Generic External Data Provider [facility] External Department Unsolicited Start: 11-03-2023 End: 11-03-2023 Patient encounter procedure Tracey FORMAN Work Phone: [facility] Work Phone: Start: 11-03-2023 End: 11-03-2023 Periodic preventive med est patient 40-64yrs Tracey FORMAN Work Phone: [facility] Comment on above: Well woman exam with routine gynecological exam; Postmenopausal state Start: 11-03-2023 End: 11-03-2023 ambulatory TRACEY HOPKINS Not Available Start: 10-02-2021 End: 10-03-[address] KIERRA NEGRON Facility: Procedures Date Procedure Procedure Detail Performing Clinician Start: 10-03-2024 ALL CBC WITH AUTO DIFF Kierra Negron MD Work Phone: Start: 11-03-2023 IGP,APTIMA HPV,AGE GDLN Tracey FORMAN Work Phone: Start: 10-07-2023 Mammography Tracey FORMAN Work Phone: Start: 06-13-2020 Microscopic observat ion [Identifier] in Cervix by Cyto stain Tracey FORMAN Work Phone: Plan of Treatment Date Care Activity Detail Author Start: 10-10-2027 Screening for malignant neoplasm of cervix [facility] Start: 06-13-2025 Screening for malignant neoplasm of cervix Pap Smear [facility] Start: 03-10-2025 Screening for malignant neoplasm of colon [facility] Start: 11-28-2024 End: 11-28-2024 Patient encounter procedure [facility] Start: 11-13-2024 End: 11-13-2024 Patient encounter procedure 11/13/2024 2:00 PM EDT Office Visit [facility] [address] [place] [address] Leo Garrett DO [address] [place], [place] [id number] [facility] Start: 10-16-2024 Influenza vaccination N [facility] Start: 10-06-2024 Screening for malignant neoplasm of breast Mammogram [facility] Start: 07-11-2024 End: 07-11-2024 Patient encounter procedure 07/11/2024 4:00 PM EDT Office Visit [facility] [address] [place] [id number] Richard Rodgers DPM [address] [address] Arrived [facility] Comment on above: Arrived Start: 11-03-2023 End: 11-02-2024 DXA Skeletal system Views for bone density DEXA bone density Imaging Routine Postmenopausal state Expected: 11/03/2023 (Approximate), Expires: 11/02/2024 [facility] Work Phone: Comment on above: Expected: 11/03/2023 (Approximate), Expires: 11/02/2024 Start: 11-03-2023 End: 11-03-2023 Patient encounter procedure 11/03/2023 2:00 PM EDT Office Visit [facility] [address] [place] [address] Tracey Hopkins PA [address] [place], [place] [id number] Arrived [facility] Comment on above: Arrived Start: 10-17-2023 Influenza vaccination Influenza Vacc ine (#1) [facility] Start: 1965 Screening for malignant neoplasm of colon [facility] THIN PREP TIS PAP AN D HR HPV DNA THIN PREP TIS PAP AND HR HPV DNA Pathology and Cytology Routine Well woman exam with routine gynecological exam Ordered: 11/03/2023 [facility] Comment on above: Ordered: 11/03/2023 Payers Date Payer Category Payer Private Health Insurance [id number] 2022 Unknown [employer] [id number] 2022-Present [address] [place] [address] [id number] 2022 Unknown [id number] 1965 Unknown [id number] 1965 Unknown [id number] 1959 Self-pay [id number] Unknown [id number] Social History Date Type Detail Facility Start: 09-16-2022 End: 07-11-2024 Tobacco smoking status NHIS Never smoked tobacco [facility] Start: 09-17-2022 End: 11-03-2023 Alcoholic beverage intake Lifetime non-drinker (finding) [facility] Start: 11-03-2023 End: 07-11-2024 History of Social function [facility] Start: 11-03-2023 End: 07-11-2024 Tobacco use panel [facility] Start: 09-16-2022 Alcohol Comment Caffeine intak e: 2-3 cups per day coffee [facility] Start: 1965 Sex assigned at Not on file [facility] Start: 07-11-2024 Tobacco use and exposure Smoke less tobacco non-user [facility] Start: 07-11-2024 Alcoholic beverage intake Ex-drinker (finding) [facility] History of Present illness Narrative 07-11-2024 Richard Rodgers DPM - 07/11/2024 4:00 PM EDT Note Date & Type Note Facility 07-11-2024 History of Presen t illness Narrative Patient: Elena Bates : 1965 PCP: Kierra Negron MD SUBJECTIVE This is a 59 y.o. female that presents today for a CC of left heel pain . States pain with 1st steps in the morning and sharp in nature with treatments consisting of anti-inflammatories and shoe gear modifications with negative relief and presents today for treatment. States the pain on a 1-10 scale a 8 Allergies: Allergies Allergen Reactions Penicillins Anaphylaxis, Rash, Shortness of breath, Swelling and Unknown Past Medical History: Past Medical History: Diagnosis Date Allergies Fibrocystic breast Menopause ovarian failure Medications: Current Outpatient Medications: valACYclovir (Valtrex) 1 g tablet, TAKE 1 TABLET BY MOUTH TWICE A DAY FOR 5 DAYS, Disp: 10 tablet, Rfl: 2 Social History: Social History Socioeconomic History Marital status: Spouse name: Not on file Number of children: Not on file Years of education: Not on file Highest education level: Not on file Occupational History Not on file Tobacco Use Smoking status: Never Smokeless tobacco: Never Substance and Sexual Activity Alcohol use: Not Currently Comment: Caffeine intake: 2-3 cups per day coffee Drug use: Never Sexual activity: Yes Partners: Male control/protection: None Other Topics Concern Not on file Social History Narrative Not on file Social Drivers of Health Financial Resource Strain: Not on file Food Insecurity: Not on file Transportation Needs: Not on file Physical Activity: Not on file Stress: Not on file Social Connections: Not on file Intimate Partner Violence: Not on file Housing Stability: Not on file ROS: General: denies fever, chills, fatigue, malaise Gastrointestinal: denies abdominal pain, ulcers, or changes in appetite or bowel habits Musculoskeletal: denies arthritis, denies loss of strength, pain to hip, knees, back Cardiovascular: denies CP, palpitations, irregular rhythms OBJECTIVE LE EXAM: DERM: Positive hair growth to b/l feet with good skin turgor noted. Negative openings in skin VASC: Palpable pedal pulsed b/l with warm to cool tibia to toes b/l NEURO: Gross sensation intact digits 1-10 and b/l feet ORTHO: 20 degrees inversion and 10 degrees eversion STJ b/l. Ankle ROM less than 10 degrees b/l. Positive pain on palpation to left medial calcaneal tubercle XRAY: US: DIAGNOSTIC US REPORT - Verbal order today for imaging today The plantar arch and heel of the left foot were scanned today using a 12MHz linear probe in the transverse and sagittal planes, concerning the plantar fascia. Images were obtained. FINDINGS - US exam demonstrates hypo-echoic thickening of plantar fascia with its origin at the medial plantar tuberosity of the calcaneus. The area of thickening and inflammation is greater than 4mm (norm = 4 mm). Notable calcaneal enthesophyte to plantar left calcaneus IMPRESSION - Left heel plantar fasciitis with heel spur ASSESSMENT 1. Heel spur, left 2. Contracture of left ankle 3. Plantar fasciitis PLAN Patient to continue with oral anti - inflammatories as needed for pain and recommended OTC medications such as tylenol or Ibuprofen Reviewed ultrasound today with patient Pt given steroid injection to left medial calcaneal tubercle under US guidance with visualization of injected fluid into area of concern per imaging. Injection of 1cc kenalog 10 and 2cc xylocaine 2% plain. Informed patient of risks and benefits of injection including non resolution of symptoms,steroid flare, tendon damage or rupture. Pt consents to proceed. 1st injection Dispensed night splint/dynamic customized AFO ([id number]) to ambulatory patient today with patient education on usage and ABN signed for device if warranted. A verbal order for dispensing of device was given today. Device dispensed for ankle contracture/deformity and or plantar fascitis as noted per diagnosis.The patient may benefit functionally from this device. The AFO was assembled with straps adjusted for proper custom fitting by Richard Rodgers DPM and staff. The patient is ambulatory and may benefit functionally from this device. It may be used for the following conditions as noted per medical diagnosis. Pre-certify for inserts Richard Rodgers DPM documented in this encounter [facility] Telephone encounter Note 01-25-2024 Telephone Encounter - Kierra Negron MD - 01/25/2024 9:51 AM EST Note Date & Type Note Facility 01-25-2024 Telephone encount er Note Allergies to penicillin [facility] Healthcare Note 01-25-2024 Telephone Encounter - Kierra Negron MD - 01/25/2024 9:51 AM EST Note Date & Type Note Facility 01-25-2024 Miscellaneous Notes Formattin g of this note might be different from the original. Allergies to penicillin documented in this encounter [facility] History of Present illness Narrative 11-03-2023 DASIA Head - 11/03/2023 2:00 PM EDT Note Date & Type Note Facility 11-03-2023 History of Presen t illness Narrative Reason for Appointment: Patient ID: Elena Bates is a 58 y.o. female who presents for Well Women Visit Patient presents today for Annual Exam. 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 SURGICAL HISTORY Past Surgical History: Procedure Laterality Date COLONOSCOPY 1995 REVIEW OF SYSTEMS Review of Systems: Review of Systems Constitutional: Negative. HENT: Negative. Eyes: Negative. Respiratory: Negative. Cardiovascular: Negative. Gastrointestinal: Negative. Genitourinary: Negative. Musculoskeletal: Negative. Skin: Negative. Neurological: Negative. All other systems reviewed and are negative. Hematological: Negative. Endocrine: Negative. Allergic/Immunologic: Negative. OBJECTIVE Objective: Physical Exam Constitutional: Appearance: Normal appearance. Genitourinary: Right Adnexa: not tender and no mass present. Left Adnexa: not tender and no mass present. No cervical discharge. Breasts: Breasts are soft. Right: Normal. Left: Normal. HENT: Head: Normocephalic. Nose: Nose normal. Mouth/Throat: Mouth: Mucous membranes are moist. Cardiovascular: Rate and Rhythm: Normal rate. Pulmonary: Effort: Pulmonary effort is normal. Abdominal: General: Bowel sounds are normal. Palpations: Abdomen is soft. Musculoskeletal: General: Normal range of motion. Cervical back: Normal range of motion. Neurological: General: No focal deficit present. Mental Status: She is alert. Skin: General: Skin is warm and dry. Psychiatric: Mood and Affect: Mood normal. Vitals and nursing note reviewed. Exam conducted with a retail performance specialist present. Vitals: Estimated body mass index is 33.61 kg/m as calculated from the following: Height as of 09/17/22: 5'. Weight as of this encounter: 172 lb 1.9 oz. BP: 118/78 No LMP recorded (lmp unknown). Patient is postmenopausal. ASSESSMENT & PLAN ICD-10-CM 1. Well woman exam with routine gynecological exam Z01.419 THIN PREP TIS PAP AND HR HPV DNA 2. Postmenopausal state Z78.0 DEXA bone density Annual Exam: Patient presents today for an annual exam. Patient states she is doing well and has no complaints. Pap was obtained without difficulty. Orders Placed This Encounter Procedures DEXA bone density Follow Up: Patient is to return in one year for annual unless needed otherwise. Documented by Criss Montgomery LPN on behalf of: DASIA Head documented in this encounter [facility] Evaluation note Note Date & Type Note Facility Evaluation note Diagnosis Well woman exam with routine gynecological exam Routine gynecological examination Postmenopausal state Asymptomatic postmenopausal status (age-related) (natural) documented in this encounter [facility] Evaluation note Note Date & Type Note Facility Evaluation note Diagnosis Bronchitis- Primary Bronchitis, not specified as acute or chronic documented in this encounter [facility] Evaluation note Note Date & Type Note Facility Evaluation note Diagnosis Heel spur, left- Primary Contracture of left ankle Plantar fasciitis Plantar fascial fibromatosis documented in this encounter [facility] Summary Purpose Family History No Family History Records FoundNo Family History Records Found Advance Directives No Advanced Directives Records FoundNo Advanced Directives Records Found Additional Source Comments INFORMATION SOURCE (unrecogn ized section and content) DATE CREATED AUTHOR 10/08/2021 [employer] DATE CREATED AUTHOR AUTHOR'S ORGANIZ ATION 07/14/2024 [facility] EPIC Reason for Visit (unrecogniz ed section and content) Reason Comments Well Women Visit Reason Comments Heel Pain Lt heel pain Care Teams (unrecognized sec tion and content) Answering Service Telephone Operator Relationship Specialty Start Date End Date Kierra Negron MD [address] [facility] [address] [place] [address] PCP - General Family Medicine 06/23/22 Tracey Hopkins, PA [facility] [place] [address] PCP - Medical [employer] 08/15/13 02/14/99 Answering Service Telephone Operator Relationship Specialty Start Date End Date Kierra Negron MD [address] [facility] [address] [place] [address] PCP - General Family Medicine 06/23/22 Tracey Hopkins [place] [facility] [place] [address] PCP - Medical [employer] 08/15/13 02/14/99 Answering Service Telephone Operator Relationship Specialty Start Date End Date Kierra Negron MD [address] [facility] [address] [place] [address] PCP - General Family Medicine 06/23/22 Tracey Hopkins, PA [address] [place], [place] [address] [address] PCP - Medical [employer] 08/15/13 02/14/99 Answering Service Telephone Operator Relationship Specialty Start Date End Date Kierra Negron MD [address] [facility] [address] [place] [address] PCP - General Family Medicine 06/23/22 Tracey Hopkins, [place] [facility] [place] [address] PCP - Medical [employer] 08/15/13 02/14/99 Answering Service Telephone Operator Relationship Specialty Start Date End Date Kierra Negron MD [address] [facility] [place] [address] PCP - General Family Medicine 06/23/22 Tracey Hopkins PA [address] [place], [place] [id number] PCP - Medical [facility] 08/15/13 02/14/99 FOR RECORDS PERTAINING TO PATIENTS WHO ARE [...] BE BASED ON THE PRIMARY CLINICAL RECORDS. [employer] [facility]. provides no warranty or guarantee of the accuracy or completeness of information in this document.
== END 2024-11-28 15:20 | disposition home or self-care (01) ==
LOC: LAB 15:19
PROVIDERS: PCP Family Medicine; Visit Provider Obstetrics & Gynecology
DX: Z01.419 Encounter for gynecological examination (general) (routine) without abnormal findings (principal); N84.1 Polyp of cervix uteri
CPT/HCPCS: 87624; 88175; 88305

== ENCOUNTER 2024-12-13 06:50 | Outpatient (OUT) | payer OTHER, SELFPAY ==
--- OUTSIDE RECORDS SUMMARY | 2024-11-29 20:24 | XMS_ITS | Continuity of Care Document ---
Author Organization [facility] Address [address] [place] [address] Phone Care Team Providers Care Sintering Plant Supervisor Name Role Phone Leo Garrett DO Attending Provider Care Teams Patient Care Team Team Status: Inactive Member Role Status Dates Leo Garrett DO Attending Provider Active Start : November 28, 2024 End: November 28, 2024 Social History Smoking Status Unknown if ever smoked Observation Status Observation Response Date of Response Legal Sex [facility] (finding) [facility] 1965 Encounters Encounter Location(s) Arrival/Admit Date Discharge/Depart Date Provider(s) Departed Referred -Lab [facility] November 28, 2024 8:25am November 28, 2024 8:26am Leo Garrett
--- NOTE | 2024-12-13 06:53 | MM_ITS ---
Patient Name: SUSAN COLLAZO MR#: [id number] : 1965 Exam Date: 12/13/2024 Ordering Doctor: DR IRWIN PANDYA . RADIOLOGY REPORT PROCEDURE: MM TOMOSYNTHESIS SCREENING BI COMPARISON: MM TOMOSYNTHESIS SCREENING BI, 10/06/2023. MM TOMOSYNTHESIS SCREENING BI, 09/30/2022. MG MAMM SCREEN 3D BLOSSOM CAD, 06/19/2020. MG MAMM BLOSSOM SCRN W CAD DIG, 07/21/2012. INDICATIONS: screening for malignant neoplasm of breast Calculator Name NCI Breast Cancer Risk Assessment Tool 5 Year Breast Cancer Risk 1.80% Lifetime Breast Cancer Risk 8.60% Personal Breast Cancer No Personal Ovarian Cancer No Treatments None Family Cancers None LOCATION: The [facility] BREAST COMPOSITION: The breasts are heterogeneously dense, which may obscure small masses. FINDINGS: RIGHT BREAST: No significant suspicious finding. LEFT BREAST: No significant suspicious finding. DIAGNOSTIC CATEGORY 1--NEGATIVE. RECOMMENDATIONS: ROUTINE MAMMOGRAM AND CLINICAL EVALUATION IN 12 MONTHS. Dictated by: Hilario Lozoya DO on 12/13/2024 at 10:22 Approved by: Hilario Lozoya DO on 12/13/2024 at 10:40
--- OUTSIDE RECORDS SUMMARY | 2024-12-13 06:53 | XMS_ITS | Encounter Summary ---
Author Organization [facility] Address [address] [place] [address] Care Team Providers Care Restaurant Hostess Name Role Phone Tracey Hopkins DASIA Unavailable Encounter Details DateTypeDepartmentCare Team (Latest Contact Info)Fbnepfwacim23/10/2024Clinisync Result Encounter [facility] Unsolicited Provider, Generic External Data Social History Tobacco UseTypesPacks/DayYears UsedDateSmoking Tobacco: NeverAlcohol UseStandard Drinks/WeekCommentsNever0 (1 standard drink = 0.6 oz pure alcohol)Caffeine intake: 2-3 cups per day coffeeCommentsNoSex and Gender InformationValue Date RecordedSex Assigned at BirthNot on fileLegal FfbVtjxao94/15/2023 6:48 PM EDTGender IdentityNot on fileSexual OrientationNot on filedocumented as of this encounter Plan of Treatment DateTypeDepartmentCare Team (Latest Contact Info)Zruvbhizstp56/19/2026 4:00 PM EDTProcedure Visit [facility] [address] [place] [address] Leo Garrett DO [address] [place], [place] [id number] documented as of this encounter Procedures Procedure NamePriorityDate/TimeAssociated DiagnosisCommentsXR DEXA AXIAL HOQSEBEV30/10/2024 4:56 AM EDT documented in this encounter Results * XR DEXA AXIAL SKELETON (11/25/2023 4:56 AM EDT)Anatomical RegionLaterality ModalityOtherSpecimen (Source)Anatomical Location / LateralityCollection Method / VolumeCollection TimeReceived Time11/25/2023 4:56 AM EDT Narrative 11/25/2023 4:58 AM EDT The [facility] ?[address] ? [place] [address] ?XRay Report ? Signed ? Patient: ZAY,ELENA A ?MR#: [id number] ?? : 1965 ?Acct:[id number] ?? Age/Sex: 58 / F ?ADM Date: 11/24/23 ?? Loc: RAD ? Attending Dr: Tracey Hopkins ? Ordering Physician: Tracey Hopkins ?? Date of Service: 11/24/23 ?? Procedure(s): XR DEXA axial skeleton ?? Accession Number(s): [id number] ? cc: SHEILA NEGRON ; Tracey Hopkins ? The [facility] ? [address] [facility] ? [place] [address] ? Patient Name: ?? ELENA BATES ? MRN: [facility]:[id number] ? date: 1965 ?Sex: F ?? Assigned Patient Location: RAD ?? Current Patient Location: ? Accession/Order Number: [id number] ?? Exam Date: 11/24/2023 ??15:15 ?Report Date: 11/25/2023 ??04:56 ? At the request of: ?? TRACEY ??SANDEEP ? Procedure: ??XR DEXA axial skeleton ? EXAMINATION: XR DEXA axial skeleton ? HISTORY: Screening Osteoporosis ? COMPARISON: No relevant comparison available. ? TECHNIQUE: Dual-energy X-ray absorptiometry (DXA) was performed. ? FINDINGS: ?? SPINE ANALYSIS: ?? Average bone mineral density is 1.080 g/cm2. ?? T-score (standard deviation relative to young adult mean): -0.8 . ? HIP ANALYSIS: ?? Lowest bone mineral density is within the left femoral neck, 0.751 g/cm2. ?? T-score (standard deviation relative to young adult mean): -2.1 . ? XR/XR DEXA axial skeleton ?? IMPRESSION: ? World Health Organization Classification: Osteopenia - Moderate Fracture Risk ?? FRAX: Cannot be calculated. ? Pharmacologic treatment recommendations ?? * No uniform recommendation applies to all patients. Management plans must be ?? individualized. ?? * Consider initiating pharmacologic treatment in postmenopausal women and men ?? >= 50 years of age who have the following: Primary fracture prevention: ?? * T-score <= - 2.5 at the femoral neck, total hip, lumbar spine, 33% radius (some uncertainty with existing data) by DXA. ?? * Low bone mass (osteopenia: T-score between - 1.0 and - 2.5) at the femoral ?? neck or total hip by DXA with a 10-year hip fracture risk >= 3% or a 10-year major osteoporosis-related fracture risk >= 20% (i.e., clinical vertebral, hip, ?? forearm, or proximal humerus) based on the US-adapted FRAXregistered model. ?? Secondary fracture prevention: ?? * Fracture of the hip or vertebra regardless of BMD [4, 5]. ?? * Fracture of proximal humerus, pelvis, or distal forearm in persons with low ?? bone mass (osteopenia: T-score between - 1.0 and - 2.5). The decision to treat ? should be individualized in persons with a fracture of the proximal humerus, ?? pelvis, or distal forearm who do not have osteopenia or low BMD [12, 13]. ?? Gilmar MS, Winnie SL, Rico KL, Ene EM, Angela KG, AJ, Ilya ?? ES. ?? The clinician's guide to prevention and treatment of osteoporosis. Osteoporos ?? Int. 2021;33(10):0611-4175. doi: 10.1007/q60913-229-70915-a. Ep2021 ? 28. Erratum in: Osteoporos Int. 2021Sep 11;: PMID: 31393036; PMCID: ?? [id number]. ? Electronically authenticated by: SID ??AFSANEH ?? Date: 11/25/2023 ??04:56 ? Dictated By: ?Sid Bojorquez M.D. ? Signed By: ?11/25/23 0458 ? DD/ 0456 ? TD/TT: ? Applications Coordinator: Procedure Note Radiology, Radiologist, MD - 11/25/[address] [address] XRay Report Signed Patient: ELENA BATES AMR#: [id number] : 1965Acct:[id number] Age/Sex: 58 / FADM Date: 11/24/23 Loc: [facility] Attending Dr: Tracey Hopkins Ordering Physician: Tracey Hopkins Date of Service: 11/24/23 Procedure(s): XR DEXA axial skeleton Accession Number(s): [id number] cc: SHEILA NEGRON ; Tracey Hopkins [address] [address] Patient Name: ELENA BATES MRN: [id number] date: 1965 Sex: F Assigned Patient Location: [facility] Current Patient Location: Accession/Order Number: [id number] Exam Date: 11/24/2023 15:15 Report Date: 11/25/2023 [...] 10-year hip fracture risk >= 3% or [id number] major osteoporosis-related fracture risk >= 20% (i.e., [...] to prevention and treatment of osteoporosis.Osteoporos Int. 2021;33(10):8107-6844. doi: 10.1007/h85147-443-95552-p. Epub . Erratum in: Osteoporos Int. 2021Sep 11;: PMID: 49377292; PMCID: [id number]. Electronically authenticated by: SID BOJORQUEZ Date: 11/25/2023 04:56 Dictated By: Sid Bojorquez M.D. Signed By:11/25/23457 DD/ 5 TD/TT: Applications Coordinator: Authorizing ProviderResult TypeResult StatusGeneric External Data Provider [facility] IMAGINGFinal Result documented in this encounter Visit Diagnoses Not on filedocumented in this encounter Care Teams Team MemberRelationshipSpecialtyStart DateEnd Date Tracey Hopkins PA [address] [place] [address] [address] [place] PCP - Medical [employer]08/16/1411documented as of this encounter
--- OUTSIDE RECORDS SUMMARY | 2024-12-13 06:53 | XMS_ITS | Encounter Summary ---
Author Organization [facility] Address [address] [place] [address] Care Team Providers Care Financial Officer Name Role Phone Tracey Johnson DASIA Unavailable Encounter Details DateTypeDepartmentCare Team (Latest Contact Info)Neykjoercyd71/22/2024Clinisync Result Encounter [facility] Unsolicited Provider, Generic External Data Social History Tobacco UseTypesPacks/DayYears UsedDateSmoking Tobacco: NeverAlcohol UseStandard Drinks/WeekCommentsNever0 (1 standard drink = 0.6 oz pure alcohol)Caffeine intake: 2-3 cups per day coffeeCommentsNoSex and Gender InformationValue Date RecordedSex Assigned at BirthNot on fileLegal GfiXpmeor79/15/2023 6:48 PM EDTGender IdentityNot on fileSexual OrientationNot on filedocumented as of this encounter Plan of Treatment DateTypeDepartmentCare Team (Latest Contact Info)Zhzytwacrmu79/19/2026 4:00 PM EDTProcedure Visit [facility] [address] [place] [address] Leo Garrett DO [address] [place] [address] documented as of this encounter Procedures Procedure NamePriorityDate/TimeAssociated DiagnosisCommentsMM TOMOSYNTHESIS SCREENING BI10/07/2023 3:52 PM EDT documented in this encounter Results * MM TOMOSYNTHESIS SCREENING BI (10/07/2023 3:52 PM EDT)Anatomical Region LateralityModalityOtherSpecimen (Source)Anatomical Location / Laterality Collection Method / VolumeCollection TimeReceived Time10/07/2023 3:52 PM EDT Narrative 10/07/2023 3:53 PM EDT [facility] ?[address] ? [place] [address] ? Mammography Report ? Signed ? Patient: ZAY,ELENA A ?MR#: [id number] ?? : 1965 ?Acct:[id number] ?? Age/Sex: 58 / F ?ADM Date: 10/06/23 ?? Loc: MAMMO ? Attending Dr: Leo Garrett D.O. ? Ordering Physician: Leo Garrett D.O. ?Results: ? Date of Service: 10/06/23 ?Follow Up: ? Procedure(s): MM tomosynthesis screening BI ?? Accession Number(s): [id number] ? cc: SHEILA NEGRON ; Leo Garrett D.O. ? Patient Name: ? ELENA BATES ? MR#: [id number] ? : 1965 ? Exam Date: 10/06/2023 ?? Ordering Doctor: DR Leo Garrett . ? RADIOLOGY REPORT ? PROCEDURE: ? MM TOMOSYNTHESIS SCREENING BI ? COMPARISON: ? MM TOMOSYNTHESIS SCREENING BI, 09/30/2022. ??MG MAMM SCREEN 3D ?? BLOSSOM CAD, 06/19/2020. ??MG MAMM SCREEN BLOSSOM W CAD, 01/25/2019. ??MG MAMM BLOSSOM SCRN W ?? CAD DIG, 07/21/2012. ? INDICATIONS: ? screening ? Calculator Name ? NCI Breast Cancer Risk Assessment Tool ?? 5 Year Breast Cancer Risk ? 1.80% ?? Lifetime Breast Cancer Risk ? 8.90% ?? Personal Breast Cancer ?No ?? Personal Ovarian Cancer ? No ?? Treatments ? None ?? Family Cancers ? None ? LOCATION: ? [facility] ? BREAST COMPOSITION: ? The breasts are heterogeneously dense,which may ?? obscure small masses. ? FINDINGS: ? DIAGNOSTIC CATEGORY 1--NEGATIVE. ? RIGHT BREAST: ??No significant suspicious finding. ??No significant change has ?? occurred. ? LEFT BREAST: ??No significant suspicious finding. ??No significant change has ?? occurred. ? RECOMMENDATIONS: ? ROUTINE MAMMOGRAM AND CLINICAL EVALUATION IN 12 MONTHS. ? PLEASE NOTE: ??A NORMAL MAMMOGRAM DOES NOT EXCLUDE THE POSSIBILITY OF BREAST ?? CANCER. ??A CLINICALLY SUSPICIOUS PALPABLE LUMP SHOULD BE BIOPSIED. ? Dictated by: Sid Bojroquez M.D. on 10/07/2023 at 15:51 ? Approved by: Sid Bojorquez M.D. on 10/07/2023 at 15:52 ? Dictated By: ?Sid Bojorquez M.D. ? Signed By: ?10/07/23 1553 ? DD/ 1552 ? TD/TT: ? Sanipractic Physician: Procedure Note Radiology, Radiologist, MD - 10/07/2023 [place] [address] Mammography Report Signed Patient: ELENA BATES [facility]#: [id number] : 1965Acct:[id number] Age/Sex: 58 / FADM Date: 10/06/23 Loc: MAMMO Attending Dr: Leo Garrett D.O. Ordering Physician: Leo Garrett D.O.Results: Date of Service: 10/06/23Follow Up: Procedure(s): MM tomosynthesis screening BI Accession Number(s): [id number] cc: SHEILA NEGRON ; Leo Garrett D.O. Patient Name: ELENA BATES MR#: [id number] : 1965 Exam Date: 10/06/2023 Ordering Doctor: DR Leo Garrett . RADIOLOGY REPORT PROCEDURE: MM TOMOSYNTHESIS SCREENING BI COMPARISON: MM TOMOSYNTHESIS SCREENING BI, 09/30/2022. MG MAMM OGHWEO2Y BLOSSOM CAD, 06/19/2020. MG MAMM SCREEN BLOSSOM [...] M.D. Signed By:10/07/23 1553 DD/ 1552 TD/TT: Sanipractic Physician: Authorizing ProviderResult TypeResult StatusGeneric External Data Provider [facility]NC IMAGINGFinal Result documented in this encounter Visit Diagnoses Not on filedocumented in this encounter Care Teams Team MemberRelationshipSpecialtyStart DateEnd Date Tracey Johnson PA [address] [place] [address] [place] [address] PCP - [facility]7/02/1411documented as of this encounter
--- OUTSIDE RECORDS SUMMARY | 2024-12-13 06:53 | XMS_ITS | CCD ---
Author Organization [facility] Care Team Providers Care Surtass Analyst Name Role Phone DR KIERRA NEGRON Attending Unavailable MIGDALIA, DR SOSA Consulting Unavailable MIGDALIA, DR SOSA Admitting Unavailable Kierra Negron MD Primary Care Provider [phone] Tracey Sewell Unavailable Tracey Sewell Unavailable RICHARD RODGERS Attending Unavailable IRWIN GARRETT Attending Unavailable Irwin Garrett DO Attending Provider [phone] Irwin Garrett Attending Unavailable rIwin Garrett Admitting Unavailable Allergies Allergy ClassificationReported Allergen(s)Allergy TypeDate of OnsetReaction(s) Facility (1 source)PenicillinsDrug allergy (disorder)[facility] Repository (13 sources)PenicillinsDrug Eiyucas94-92-0295Zfjivsorfla, Rash, Shortness of breath, Swelling, UnknownNOMS Healthcare Medications Current Medications MedicationDrug Class(es)DatesSig (Normalized)Sig (Original)azithromycin 250 mg oral tablet (1 source)Macrolide AntimicrobialStart: 01-25-2024 End: 51-81-2289euyi 1 tablet by mouth once dailyazithromycin (Zithromax) 250 MG tablet Indications: Bronchitis Take 1 tablet (250 mg) by mouth Daily for 5 days 6 tablet 01/25/2024 01/30/2024 ActivevalACYclovir 1000 mg oral tablet (12 sources)Herpesvirus Nucleoside Analog DNA Polymerase Inhibitor, Herpes Simplex Virus Nucleoside Analog DNA Polymerase Inhibitor, Herpes Zoster Virus Nucleoside Analog DNA Polymerase InhibitorStart: 12-22-2022 End: 03-39-2407xnvg 1 tablet by mouth twice dailyvalACYclovir (Valtrex) 1 g tablet Indications: Herpes circinatus bullosus (HCC) TAKE 1 TABLET BY MOUTH TWICE A DAY FOR 5 DAYS 10 tablet 2 12/22/2022 11/28/2024 Discontinued Completed/Discontinued Medications MedicationDrug Class(es)DatesSig (Normalized)Sig (Original)aspirin 81 mg chewable tablet (3 sources)Platelet Aggregation Inhibitor, Nonsteroidal Anti-inflammatory Drug End: 21-35-5117QYITRLC 81 MG chewable tablet 1 (one) time each day at the same time. 11/03/2023 Discontinued (Other) Problems Problem ClassificationProblemDateDocumented DateEpisodic/ChronicChronic obstructive pulmonary disease and bronchiectasis (1 source)Bronchitis; Translations: [Bronchitis, not specified as acute or chronic]28-43-4916WpeozsbhTnacslgzb of lipid metabolism (13 sources)Pure hypercholesterolemia; Translations: [Pure hypercholesterolemia, unspecified]Onset: 773291-29-0994NpbjpdxZdgwd acquired deformities (2 sources)Contracture of joint of left ankle; Translations: [Contracture, left ankle]57-48-3121IzjasfdIjbdx connective tissue disease (2 sources)Calcaneal spur of left foot; Translations: [Calcaneal spur, left foot]79-31-0912IcifrueiRdwpn connective tissue disease (2 sources)Plantar fasciitis; Translations: [Plantar fascial fibromatosis] 63-98-4846AktegdosWozvp female genital disorders (1 source)Polyp of cervix uteri; Translations: [Polyp of cervix uteri]Onset: 85-98-9384YelsgpwgRleym inflammatory condition of skin (13 sources)Dermatitis herpetiformis; 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]Onset: 080440-66-2778BkyymmpAabya screening for suspected conditions (not mental disorders or infectious disease) (2 sources)Patient encounter status; Translations: [Encounter for screening mammogram for malignant neoplasm of breast]78-49-1264HmnomgxbPphpvgfq codes; unclassified (4 sources)Postmenopausal state; Translations: [Asymptomatic menopausal state] 47-03-1821Rvsqwmbd Results Test NameValueInterpretationReference RangeFacilityIGP,APTIMA HPV,AGE GDLNon 24-36-3821SFI GDLN ACOG TESTINGNote.NOMS HealthcareComment on above:TESTS RESULT FLAG UNITS REF RANGE LAB Clinician Provided Cytology Information Source.............Cervix;Endocervix No. of containers..01 ThinPrep Vial Age Maryao ACOG Aarti... 3065 01 FLAG LEGEND: L-Low Normal,H-High Normal,LL-Alert Low,HH-Alert High <-Panic Low,>-Panic High,A-Abnormal,AA-Critical Abnormal Performed at: 01 =G [address] [address] Jasmyne Cabrera MD, HPV APTIMANegativeNegativeNOMS HealthcareComment on above:This nucleic acid amplification test detects fourteen high- risk HPV types (16,18,31,33,35,39,45,51,52,56,58,59,66,68) without differentiation. Performed at: = - [address] [id number] Driving Instructor: Jasmyne Cabrera MD, Phone: [phone] Performed at: [address] [id number] Driving Instructor: Jasmyne Cabrera MD, Phone: [phone] IGP, APTIMA HPV, RFX 16/18,45Note.NOMS HealthcareComment on above:TESTS RESULT FLAG UNITS REF RANGE LAB DIAGNOSIS: 02 NEGATIVE FOR INTRAEPITHELIAL LESION OR MALIGNANCY. REACTIVE CELLULAR CHANGES AND/OR REPAIR ARE PRESENT. CELLULAR CHANGES ASSOCIATED WITH ATROPHY ARE PRESENT. Specimen adequacy: 02 Satisfactory for evaluation. Endocervical and/or squamous metaplastic cells (endocervical component) are present. Performed by: 02 Sharron Cook, Renal Technician (ASCP) Electronically si... 02 Jasmyne Cabrera MD, Pathologist . 02 Note: Note 02 The Pap smear is a screening test designed to aid in the detection of premalignant and malignant conditions of the uterine cervix. It is not a diagnostic procedure and should not be used as the sole means of detecting cervical cancer. Both false-positive and false-negative reports do occur. Test Methodology: Note 02 This liquid based ThinPrep(R) pap test was interpreted using the ChurchPairing(R) zumatek(TM) Cervical Algorithm whole slide imaging system. HPV Genotype Reflex Note 02 Criteria not met, HPV Genotype not performed. FLAG LEGEND: L-Low Normal,H-High Normal,LL-Alert Low,HH-Alert High <-Panic Low,>-Panic High,A-Abnormal,AA-Critical Abnormal Performed at: [address] [place] [address] Jasmyne Cabrera MD, BRUSH-SPATULA CERVIX ENDOCERVIX CLINISYNCNOMS [facility] 11-28-2024L Specimen: [id number] Received: 11/30/24 Status: MIGUEL Douglass Num: [id number] Spec Type: Surgical Subm Dr: Irwin Garrett Tissues: A Cervical Polyp (CERVICAL POLYP) Procedures: HE/2, Gross/Micro L4 Age/ Patient Sex Location Account Attending Physician Elena Bates 59/F BELL [id number] Irwin Garrett SPEC NUM: [id number] RECD: 11/30/24 STATUS: DELNick DOUGLASS NUM: [id number] EMILY: 11/28/24- SUBM DR: Irwin Garrett ENTERED: 11/30/[address]: Wilver Beckham SPEC TYPE: Surgical DEPT: CARLOS ANG ENTERED BY: [id number] RECV BY: [id number] ORDERED: HE/2, Gross/Micro L4 ORDERED: HE/2, Gross/Micro L4 Pathological Diagnosis Cervix, polyp, polypectomy: - Endocervical polyp. - No evidence of dysplasia or malignancy identified. Clinical Information Cervical polyp Gross Description Received in formalin labeled with the patient's name, date of , and cervical polyp is a morales-pink to purple, mucosal lined polypoid structure, 1 x 1.1 x 0.4 cm. The specimen is inked black at the apparent point of attachment, serially sectioned, and entirely submitted in a single cassette. (1, ns,[id number]) Microscopic Description Microscopic examination is performed. CPT Codes 06234 Specimen: [id number] Received: 11/30/24 Status: MIGUEL Douglass Num: [id number] Spec Type: Surgical Subm Dr: Irwin Garrett Tissues: A Cervical Polyp (CERVICAL POLYP) Procedures: HE/2, Gross/Micro L4 Patient: Elena Bates Jorge [id number] (Continued) Signed (signature on file) Percy Mercado MD 12/01/24 1057Normal [facility] Physician GroupALL CBC WITH AUTO DIFFon 57-99-0835QOHYUDRQU ABSOLUTE HLVY2NNXJ HealthcareBasophils/100 WBC (Bld)0.8 %0.2 - 2.0 %NOMS HealthcareEosinophils/100 WBC (Bld)2.6 %0.9 - 7.0 %NOMS HealthcareErythrocyte distribution width (RBC) [Ratio]12.7 %11.0 - 15.0 %NOMS HealthcareHematocrit (Bld) [Volume fraction]43.1 %36.0 - 48.0 %NOMS HealthcareHemoglobin (Bld) [Mass/Vol]14.1 g/dL12.0 - 16.0 g/dLNOME HealthcareIMMATURE GRANULOCYTES ABS AUTO 0.01NOMS HealthcareImmature granulocytes/100 WBC (Bld)0.3 %0.0 - 0.5 %NOMS HealthcareInterpretation and review of laboratory resultsAbnormalNOME Healthcare LYMPHOCYTES ABSOLUTE AUTO1.6NOMS HealthcareLymphocytes/100 WBC (Bld)40.6 %20.5 - 60.0 %NOMS [facility] HospitalMCH (RBC) [Entitic mass]28 pg26.7 - 34.0 pgNOMS Healthcare MCHC (RBC) [Mass/Vol]32.7 g/dL29.9 - 35.2 g/dLNOKindred HospitalMCV (RBC) [Entitic vol]85.7 fL81.0 - 99.0 fLNOME HealthcareMONOCYTES ABSOLUTE AUTO0.2LowNOMS HealthcareMonocytes/100 WBC (Bld)5.8 %1.7 - 12.0 %NOMS HealthcareNEUTROPHILS ABSOLUTE AUTO1.9NOMS HealthcareNeutrophils/100 WBC (Bld)49.9 %43.0 - 75.0 %NOMS HealthcarePlatelet mean volume (Bld) [Entitic vol]10.7 fL9.5 - 13.5 fLNOMS HealthcareTBH EO #0.1NOMS HealthcareTBH ADP825YXCJ HealthcareTBH RBC5.03NOMS HealthcareTBH WBC3.8LowNOMS HealthcareCLINISYNCNOMS HealthcareIGP,APTIMA HPV,AGE GDLNon 10-41-9135XYR GDLN ACOG TESTINGNote.[facility] HealthcareComment on above:TESTS RESULT FLAG UNITS REF RANGE LAB Clinician Provided Cytology Information Source.............Cervix;Endocervix No. of containers..01 ThinPrep Vial Age Algo ACOG Aarti... - FLAG LEGEND: L-Low Normal,H-High Normal,LL-Alert Low,HH-Alert High <-Panic Low,>-Panic High,A-Abnormal,AA-Critical Abnormal Performed at: 01 =G [place] [address] [address] Jasmyne Cabrera MD, HPV APTIMANegativeNegativeNOME HealthcareComment on above:This nucleic acid amplification test detects fourteen high- risk HPV types (16,18,31,33,35,39,45,51,52,56,58,59,66,68) without differentiation. Performed at: =G - [facility] [address] [id number] Driving Instructor: Jasmyne Cabrera MD, Phone: [phone] Performed at: WB - [facility], [place] [id number] Driving Instructor: Jasmyne Cabrera MD, Phone: [phone] IGP, APTIMA HPV, RFX 16/18,45Note.NOMS HealthcareComment on above:TESTS RESULT FLAG UNITS REF RANGE LAB DIAGNOSIS: 02 NEGATIVE FOR INTRAEPITHELIAL LESION OR MALIGNANCY. CELLULAR CHANGES ASSOCIATED WITH ATROPHY ARE PRESENT. Specimen adequacy: 02 Satisfactory for evaluation. Endocervical and/or squamous metaplastic cells (endocervical component) are present. Performed by: Franci Vee, Curb Worker ([facility]) . 02 Note: Note 02 The Pap smear is a screening test designed to aid in the detection of premalignant and malignant conditions of the uterine cervix. It is not a diagnostic procedure and should not be used as the sole means of detecting cervical cancer. Both false-positive and false-negative reports do occur. Test Methodology: Note 02 The DealerRater(R) Medical Photographer was unable to read this specimen. Therefore a manual review was performed. FLAG LEGEND: L-Low Normal,H-High Normal,LL-Alert Low,HH-Alert High <-Panic Low,>-Panic High,A-Abnormal,AA-Critical Abnormal Performed at: [address] [facility] [address] [address] Jasmyne Cabrera MD, HPV Genotype Reflex Note 02 Criteria not met, HPV Genotype not performed. Criteria not met, HPV Genotype not performed. BRUSH-SPATULA CERVIX ENDOCERVIX CLINISYBaptist Memorial HospitalCytology Cervical or vaginal smear or scraping studyon [id number] County Memorial HospitalHEALTH FAIR CBC AUTO DIFFon [id number] #0.0 103/ul Normal0.0-0.1The [facility] CenterComment on above:Performed By: #### HFPFCBC #### [facility] [address] [place] [address] Dr. Kp KohlerBasophils/100 WBC (Bld)0.5 %Normal0.2-2.0[facility] Comment on above:Performed By: #### HFPFCBC #### [facility] [address] [place] [address] Dr. Kp Gabriel #0.1 103/ulNormal0.0-0.7The [facility] CenterComment on above: Performed By: #### HFPFCBC #### [facility] [address] [place] [address] Dr. Kp Coulterosinophils/100 WBC (Bld)3.8 %Normal0.9-7.0[facility] Comment on above:Performed By: #### HFPFCBC #### [facility] [address] [place] [address] Dr. Kp Coulterrythrocyte distribution width (RBC) [Ratio]12.9 %Miwekr48.0-15.0 The [facility] CenterComment on above:Performed By: #### HFPFCBC #### [facility] [address] [place] [address] Dr. Kp KohelrHematocrit (Bld) [Volume fraction]40.4 %Tgzaat46.0-48.0[facility] HospitalComment on above:Performed By: #### HFPFCBC #### [facility] [address] [place] [address] Dr. Kp KohlerHemoglobin (Bld) [Mass/Vol]13.4 g/cXEepdzt04.0-16.0The [facility] CenterComment on above:Performed By: #### HFPFCBC #### [facility] [address] [place] [address] Dr. Kp Mason #0.01 10e3/ulNormal0.00-0.03The [facility] CenterComment on above:Performed By: #### HFPFCBC #### [facility] [address] [place] [address] Dr. Kp Mason %0.3 %Normal0.0-0.5The [facility] CenterComment on above: Performed By: #### HFPFCBC #### [facility] [address] [place] [address] Dr. Kp Pang #1.1 103/ulCritically low1.2-3.8The [facility] Comment on above:Performed By: #### HFPFCBC #### [facility] [address] [place] [address] Dr. Kp Lawshocytes/100 WBC (Bld)29.2 %Wcsqvx55.5-60.0The [facility] CenterComment on above:Performed By: #### HFPFCBC #### [facility] [address] [place] [address] Dr. Kp Lee (RBC) [Entitic mass]28.3 jmWqhfbh14.7-34.0The [facility] CenterComment on above:Performed By: #### HFPFCBC #### [facility] [address] [place] [address] Dr. Kp Lee (RBC) [Mass/Vol]33.2 g/fXOinnoo29.9-35.2The [facility] CenterComment on above:Performed By: #### HFPFCBC #### [facility] [address] [place] [address] Dr. Kp Lee (RBC) [Entitic vol]85.4 gTRgiiqf57.0-99.0The [facility] CenterComment on above:Performed By: #### HFPFCBC #### [facility] [address] [place] [address] Dr. Kp Hernandez #0.3 103/ulNormal0.3-0.8The [facility] CenterComment on above:Performed By: #### HFPFCBC #### [facility] [address] [place] [address] Dr. Kp Osullivanocytes/100 WBC (Bld)8.1 %Normal1.7-12.0The [facility] Comment on above:Performed By: #### HFPFCBC #### [facility] [address] [place] [address] Dr. Kp Ventura #2.2 103/ulNormal1.4-6.5The [facility] CenterComment on above:Performed By: #### HFPFCBC #### [facility] [address] [place] [address] Dr. Kp Magallanesutrophils/100 WBC (Bld)58.1 %Ffmnjj27.0-75.0The [facility] CenterComment on above:Performed By: #### HFPFCBC #### [facility] [address] [place] [address] Dr. Kp Bertrand mean volume (Bld) [Entitic vol]10.0 fLNormal9.5-13.5The [facility] CenterComment on above:Performed By: #### HFPFCBC #### [facility] [address] [place] [address] Dr. Kp KohlerPLT215 103/ldQmkprh025-698Ipd [facility] CenterComment on above: Performed By: #### HFPFCBC #### [facility] [address] [place] [address] Dr. Kp KohlerRBC4.73 106/ulNormal4.20-5.40The [facility] CenterComment on above:Performed By: #### HFPFCBC #### [facility] [address] [place] [address] Dr. Kp KohlerWBC3.7 103/ulCritically low4.0-11.0The [facility] CenterComment on above:Performed By: #### HFPFCBC #### [facility] [address] [place] [address] Dr. Kp CarmenFARAFAELA PROFILEon 77-85-1332Cvqangj [Mass/Vol]4.0 g/dLNormal 3.4-5.0The [facility] CenterComment on above:Performed By: #### HFPF #### [facility] [address] [place] [address] Dr. Kp KohlerAlbumin/Globulin [Mass ratio]1.1 {ratio}NormalThe [facility] CenterComment on above:Performed By: #### HFPF #### [facility] [address] [place] [address] Dr. Kp BaumP [Catalytic activity/Vol]62 U/EEmjmbf84-533Iwr [facility] CenterComment on above:Performed By: #### HFPF #### [facility] [address] [place] [address] Dr. Kp BaumT [Catalytic activity/Vol]20 U/FZnuqnv25-59Wch [facility] CenterComment on above:Performed By: #### HFPF #### [facility] [address] [place] [address] Dr. Kp KohlerAST [Catalytic activity/Vol]18 U/PZfdwkj37-36Phg [facility] CenterComment on above:Performed By: #### HFPF #### [facility] [address] [place] [address] Dr. Kp KohlerBilirubin [Mass/Vol]0.7 mg/dLNormal0.2-1.0The [facility] Comment on above:Performed By: #### HFPF #### [facility] [address] [place] [address] Dr. Kp KohlerCalcium [Mass/Vol]9.2 mg/dLNormal8.5-10.1The [facility] Comment on above:Performed By: #### HFPF #### [facility] [address] [place] [address] Dr. Kp KohlerChloride [Moles/Vol]103 mmol/IHyudqx77-497Bhv [facility] Comment on above:Performed By: #### HFPF #### [facility] [address] [place] [address] Dr. Kp KohlerCHOL-HDL RATIO NORMSEE [facility] HospitalComment on above:Result Comment: 3.3 - 4.4 LOW RISK 4.4 - 7.1 AVERAGE RISK 7.1 - 11.0 MODERATE RISK >11.0 HIGH RISKPerformed By: #### HFPF #### [facility] [address] [address] [address] Kp KohlerCholesterol [Mass/Vol]218 mg/dLCritically high<=200The [facility] CenterComment on above:Performed By: #### HFPF #### [facility] [address] [place] [address] Dr. Kp KohlerCholesterol in HDL [Mass/Vol]58 mg/tEArckpc05-18Iqq [facility] CenterComment on above:Performed By: #### HFPF #### [facility] [address] [address] [address] Kp KohlerCholesterol in LDL [Mass/Vol]150.4 mg/dLCleveland Clinic Marymount HospitalComment on above:Performed By: #### HFPF #### [facility] [address] [place] [address] Dr. Kp Slateresteryovany.total/Cholesterol in HDL [Mass ratio]3.8 {ratio} NormalThe [facility] CenterComment on above:Performed By: #### HFPF #### [facility] [address] [address] [address] Kp KohlerCO2 [Moles/Vol]28.6 mmol/IWvqwbo00.0-32.0The [facility] Comment on above:Performed By: #### HFPF #### [facility] [address] [place] [address] Dr. Kp KohlerCreatinine [Mass/Vol]0.82 mg/dLNormal0.55-1.02The [facility] CenterComment on above:Performed By: #### HFPF #### [facility] [address] [address] [address] Kp KohlerGlobulin (S) [Mass/Vol]3.5 g/dLCleveland Clinic Marymount HospitalComment on above:Performed By: #### HFPF #### [facility] [address] [address] [address] Kp KohlerGlucose [Mass/Vol]82 mg/yTSybmat22-830HecAvita [facility] Comment on above:Performed By: #### HFPF #### [facility] [address] [address] [address] pK KohlreHDBharat NORMAL> or = 60 mg/dl - LOW CARDIOVASCULAR RISK <40 mg/dl - HIGH CARDIOVASCULAR RISKCleveland Clinic Marymount HospitalComment on above:Performed By: #### HFPF #### [facility] [address] [address] [address] Kp KohlerLDL CALC NORMALSEE BELOWCleveland Clinic Marymount HospitalComment on above:Result Comment: <100 mg/dl OPTIMAL 100 - 129 mg/dl NEAR OR ABOVE OPTIMAL 130 - 159 mg/dl BORDERLINE HIGH 160 - 189 mg/dl HIGH >190 mg/dl VERY HIGH Performed By: #### HFPF #### [facility] [address] [place] [address] Dr. Kp KohlerPotassium [Moles/Vol]3.5 mmol/LNormal3.5-5.1[facility] Comment on above:Performed By: #### HFPF #### [facility] [address] [address] [address] Kp KohlerProtein [Mass/Vol]7.5 g/dLNormal6.4-8.2[facility] Comment on above:Performed By: #### HFPF #### [facility] [address] [address] [address] Kp KohlerSodium [Moles/Vol]140 mmol/IOvyfqh189-114OioAvita Health System [facility] Hospital Comment on above:Performed By: #### HFPF #### [facility] [address] [address] [address] Kp KohlerTriglyceride [Mass/Vol]48 mg/dLNormal<=150The [facility] Comment on above:Performed By: #### HFPF #### [facility] [address] [address] [address] Kp KohlerTSH2.926 uIU/mLNormal0.358-3.740The [facility] CenterComment on above:Performed By: #### HFPF #### [facility] [address] [address] [address] Kp KohlerUrea nitrogen [Mass/Vol]13.0 mg/dLNormal7.0-18.0The [facility] CenterComment on above:Performed By: #### HFPF #### [facility] [address] [place] [address] Dr. Kp Grimm nitrogen/Creatinine [Mass ratio]15.9 mg/mgNoSt. Anthony's HospitalComment on above:Performed By: #### HFPF #### [facility] [address] [place] [address] Dr. Kp KohlerVLDL CALC9.6 mg/dLNoSt. Anthony's HospitalComment on above: Performed By: #### HFPF #### [facility] [address] [place] [address] Dr. Kp Kohler Vital Signs Date TimeVital SignValuePerforming LcclcxjshYhsgzeqq88-27-4318 08:37-0400Body mass index (BMI) [Ratio]33.54 kg/u2Zwvgp [employer] DO Work Phone: [facility] HospitalEwwllcspfz85-63-0692 08:37-0400Body ocilev37.91 kgCore Hello[employer] DO Work Phone: [facility] HospitalFrfwozugha72-71-6495 08:37-0400Diastolic blood ivqgsqvp23 mm[Hg]IrwinMacroSolve DO Work Phone: [facility] HospitalLcicswmztj50-65-8538 08:37-0400Systolic blood mm[Hg][facility] Workstreamer Work Phone: [facility] HospitalUqedlylpwq44-40-0757 15:49-0400Body .4 cmRichard Rodgers DPM Work Phone: [facility] HospitalCdaphwqxht71-84-6454 15:49-0400Body mass index (BMI) [Ratio]32.22 kg/i6WgrjylrlRichard Rodgers DPM Work Phone: [facility] HospitalMiwmtfskix72-36-6552 15:49-0400Body pdpyfs29.84 kgRichard Rodgers DPM Work Phone: [facility] HospitalCzirpzfice63-41-1912 15:49-0400Respiratory rate18 /minNicpascale Rodgers DPM Work Phone: [facility] HospitalRdbtrzbrwy26-87-9355 14:07-0400Body mass index (BMI) [Ratio]33.61 kg/m2Tracey FORMAN Work Phone: [facility] HospitalQaxxivnagz24-00-2107 14:07-0400Body .07 kgTracey FORMAN Work Phone: [facility] HospitalDbcypyakie45-35-4634 14:07-0400Diastolic blood utdrkbft76 mm[Hg]Tracey FORMAN Work Phone: [place] [address]Vozfraywob13-40-8737 14:07-0400Systolic blood izjvceby947 mm[Hg]Tracey FORMAN Work Phone: no[facility] Encounters Encounter DateEncounter TypeCare ProviderFacilityStart: 11-28-2024 End: 28-14-2604Ylybtr flowsheetCorey Gerry DO Work Phone: NO Bhavani OBGYNStart: 11-28-2024 End: 21-94-6449Yfxwyz flowsheetCorey Gerry DO Work Phone: noMS Bhavani OBGYNStart: 11-28-2024 End: 61-69-7871Mcqshjmox Result EncounterGeneric External Data ProviderNOMS External Department UnsolicitedStart: 11-28-2024 End: 99-90-5788Supmlvj encounter procedureCorey Gerry DO Work Phone: noms HealthcareStart: 11-28-2024 End: 02-54-0031Heojecdv preventive med est patient 40-64yrsCorey Gerry DO Work Phone: noms Bhavani OBGYNComment on above:Well woman exam with routine gynecological exam; Encounter for screening mammogram for malignant neoplasm of breast; Postmenopausal stateStart: 11-28-2024 End: 84-57-2249Rjqcdbby ReferredCorey Gerry-Lab [facility] Work Phone: Start: 11-28-2024 End: 22-59-9183xhwewsnxqiZPZVD FAZIONot AvailableStart: 10-03-2024 End: 40-23-5921Jconlkurz Result EncounterKierra Negron MD Work Phone: noms External Department UnsolicitedStart: 10-03-2024 End: 54-87-3618Hwifamtel Result EncounterKierra Negron MD Work Phone: noms External Department UnsolicitedStart: 07-11-2024 End: 37-57-5427Waxzgc outpatient new 30 minutesNicpascale Rodgers DPM Work Phone: noMS [place] PODComment on above:Heel spur, left (Primary Dx); Contracture of left ankle; Plantar fasciitisStart: 07-11-2024 End: 39-65-0917eftquyntseDKUAHOMF A BROWNNot AvailableStart: 07-11-2024 End: 98-16-2038Swrkqt flowsheetNicpascale Rodgers DPM Work Phone: noMS [place] PODStart: 07-11-2024 End: 11-55-1843Oyzapp flowsheetNicholjarek Rodgers DPM Work Phone: noMS [place] PODStart: 01-25-2024 End: 69-64-6940Ibrvrczzj Guille Negron MD Work Phone: noms CI FMStart: 11-03-2023 End: 02-39-8025Cyvadn Mila FORMAN Work Phone: noms [facility] OBStart: 11-03-2023 End: 31-23-1095Yhtylw flowsheetTracey FORMAN Work Phone: noms [facility] OBStart: 11-03-2023 End: 20-87-2875Wlqqkvkiw Result EncounterGeneric External Data ProviderNOMS External Department UnsolicitedStart: 11-03-2023 End: 73-45-8715Fsrfklm encounter procedureTracey FORMAN Work Phone: [facility] Work Phone: Start: 11-03-2023 End: 67-73-2388Zjdyahso preventive med est patient 40-64yrsAmy Elizabeth FORMAN Work Phone: noms [facility] OBComment on above:Well woman exam with routine gynecological exam; Postmenopausal stateStart: 10-02-2021 End: 75-91-9291vunlpcrasoQP RUGEN ALDAFacility:H1 Procedures DateProcedureProcedure DetailPerforming ClinicianStart: 53-51-6887VVB,APTIMA HPV,AGE GDLNGeneric External Data ProviderStart: 82-58-8160CDT CBC WITH AUTO DIFFRugen Ronni Negron MD Work Phone: Start: 99-91-0642ZOG,APTIMA HPV,AGE GDLNTracey FORMAN Work Phone: Start: 78-04-9430Ocfokumgiru observation [Identifier] in Cervix by Cyto stainCorey Gerry DO Work Phone: Start: 75-53-0193Ucls cerv/vag auto thin layer prep mnl screenTracey FORMAN Work Phone: Start: 48-84-9677KocrpurgiihHsf Ramey PA Work Phone: Start: 20-12-5660Vcmqzhxwrvk observation [Identifier] in Cervix by Cyto stainTracey FORMAN Work Phone: Plan of Treatment DateCare ActivityDetailAuthorStart: 91-65-3318Ymywjlvpu for malignant neoplasm of cervixNOME HealthcareStart: 71-26-7769Fhoimfajw for malignant neoplasm of cervixPap SmearNOMS HealthcareStart: 12-03-2025 End: 42-44-5356Vimfpcu encounter zmnbesvov49/19/2026 4:00 PM EDT Procedure [facility] [address] [place] [id number] Irwin Garrett, DO [address] [place] [address] [facility]OMAsh[facility] OBGYNStart: 06-13-2025 Screening for malignant neoplasm of cervixPap SmearNOMS HealthcareStart: 60-78-4333Qnzxojwkt for malignant neoplasm of colonNOMS HealthcareStart: 11-28-2024 End: 50-39-6776JC Breast - bilateral ScreeningBilateral screening mammogram Imaging Routine Encounter for screening mammogram for malignant neoplasm of breast Expected: 11/28/2024, Expires: 01/28/2026[facility] Work Phone: comment on above:Expected: 11/28/2024, Expires: 01/28/2026Start: 11-28-2024 End: 88-82-6794Xakefes encounter procedureNOMS BCP OBComment on above:Arrived Start: 11-13-2024 End: 42-36-2851Jacwcuz encounter nfarscboa05/29/2025 2:00 PM EDT Office Visit [facility] [address] [place] [address] Irwin Garrett, DO [address] [place] [address] [facility] BCP OBStart: 62-47-1595Qytpdtscl vaccinationNOMS HealthcareStart: 51-93-7778Gqpnqjugw for malignant neoplasm of breastMammogram NOMS HealthcareStart: 07-11-2024 End: 72-72-0388Dgpwbdv encounter qywwvhawn72/27/2025 4:00 PM EDT Office Visit [facility] [place] [facility] [address] [place] [phone] Richard Rodgers DPM [address] [address] [facility] PODComment on above:ArrivedStart: 11-03-2023 End: 36-12-0695GPD Skeletal system Views for bone densityDEXA bone density Imaging Routine Postmenopausal state Expected: 11/03/2023 (Approximate), Expires:11/02/2024[facility] Work Phone: comment on above:Expected: 11/03/2023 (Approximate), Expires: 11/02/2024Start: 11-03-2023 End: 71-89-8543Znsmrkj encounter jrxnqivau66/18/2024 2:00 PM EDT Office Visit [facility] [address] [address] Tracey Johnson PA [address] [facility] [place] [address] [facility] OBComment on above:ArrivedStart: 10-17-2023 Influenza vaccinationInfluenza Vaccine (#1)[facility]Start: 1965 Screening for malignant neoplasm of colonSullivan County Memorial HospitalTHIN PREP TIS PAP AND HR HPV DNATHIN PREP TIS PAP AND HR HPV DNA Pathology and Cytology Routine Well woman exam with routine gynecological exam Ordered: 11/03/2023[facility] Comment on above:Ordered: 11/03/2023THIN PREP TIS PAP AND HR HPV DNATHIN PREP TIS PAP AND HR HPV DNA Pathology and Cytology Routine Well woman exam with routine gynecological exam Ordered: 11/28/2024[facility] HospitalComment on above: Ordered: 11/28/2024 Payers DatePayer CategoryPayerPolicy [id number] Health [id number] [employer] [id number] 2022-Present [address] [place] [id number] [id number] Social History DateTypeDetailFacilityStart: 09-16-2022 End: 19-95-4964Oolzzsi smoking status NHISNever smoked tobaccoNOMS Healthcare Start: 09-17-2022 End: 53-81-8003Qsufpanad beverage intakeLifetime non-drinker (finding)[facility] HealthcareStart: 11-03-2023 End: 83-74-6148Gamktit of Social functionNOMS HealthcareStart: 11-03-2023 End: 39-71-4183Hcdbehp use panelNOMS HealthcareStart: 47-90-2181Paietgn Comment Caffeine intake: 2-3 cups per day coffeeNOMS HealthcareStart: 52-49-9447Nsc assigned at birthNot on fileNOMS HealthcareStart: 74-05-9697Seylilp use and exposureSmokeless tobacco non-userNOMS HealthcareStart: 07-11-2024 End: 26-97-8737Mvreoomqw beverage intakeEx-drinker (finding)[facility] Start: 38-08-7310YwfUtwrdzOYHL HealthcareTobacco smoking status NHISUnknown if ever smokedKettering Health Troy Work Phone: SexFemale (finding)[facility] Start: 17-48-1402Gim [facility] Clinical Notes 11-03-2023 to 11-28-2024 Note Date & GssoDrpdErfyeukd53-30-4466 History of Present illness Narrative* Katherine Davila, EMERGENCY COMMUNICATIONS OPERATOR - 11/28/2024 8:30 AM EDT Reason for [...] nursing note reviewed. Exam conducted with a group home supervisor present. Vitals: Estimated body mass index is 33.54 kg/m as calculated from the following: Height [...] them. Patient can also view results via UrgentRx. I reinforced importance of condom use for [...] by Katherine Davila LPN on behalf of: Irwin Garrett DO [1] Allergies Allergen Reactions Penicillins Anaphylaxis, Rash, Shortness of breath, Swelling and Unknown [2] Past Medical History: Diagnosis Date Allergies Fibrocystic breast Menopause ovarian failure [3] No family history on file. [4] Past Surgical History: Procedure Laterality Date COLONOSCOPY 1995 documented in this encounterSullivan County Memorial HospitalHjsauspatb65-43-6221 History of Present illness Narrative* Richard Patel Vishal, DPM - 07/11/2024 4:00 PM EDT Patient: Elena Bates : 1965 PCP: Kierra Negron MD SUBJECTIVE This is a 59 y.o. female that presents today for a CC of left heel pain . States pain with 1st steps in the morning and sharp in nature with treatments consisting of anti-inflammatories and shoe gearmodifications with negative relief and presents today for [...] fascia with its origin at the medial plantartuberosity of the calcaneus. The area of thickening [...] inserts Richard Rodgers DPM documented in this encounterSullivan County Memorial HospitalCzqayhpfjx03-57-4690 Telephone encounter Note* Telephone Encounter - Kierra Negron MD - 01/25/2024 9:51 AM EST Allergies to penicillin N[facility] Skexmyqqgo21-06-3354 Miscellaneous Notes* Telephone Encounter - Kierra Negron MD - 01/25/2024 9:51 AM EST Allergies to penicillin documented in this encounterSullivan County Memorial HospitalRwjxxptols99-62-0610 History of Present illness Narrative* DASIA Head - 11/03/2023 2:00 PM EDT Reason for Appointment: Patient ID: Elena Bates is a 58 y.o. female who presents for Well Women Visit Patient presents today for Annual Exam. 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 Exam conducted with a group home supervisor present. Vitals: Estimated body mass index is [...] behalf of: DASIA Head documented in this encounterNOME HealthcareEvaluation note* Diagnosis Well woman exam with routine gynecological exam Routine gynecological examination Postmenopausal state Asymptomatic postmenopausal status (age-related) (natural) documented in this encounter [facility] HealthcareEvaluation note* Diagnosis Bronchitis- Primary Bronchitis, not specified as acute or chronic documented in this encounter [facility] HealthcareEvaluation note* Diagnosis Heel spur, left- Primary Contracture of left ankle Plantar fasciitis Plantar fascial fibromatosis documented in this encounter [facility] HealthcareEvaluation note* Diagnosis Well woman exam with routine gynecological exam Routine gynecological examination Encounter for screening mammogram for malignant neoplasm of breast Postmenopausal state Asymptomatic postmenopausal status (age-related) (natural) documented in this encounter [facility] HealthcareEvaluation noteNo assessment information availableSelect Medical [facility] Work Phone: Reason for referral (narrative)No reason for referral information availableKettering Health Troy Work Phone: Summary Purpose Family History No Family History Records FoundNo Family History Records FoundNo Family History Records Found Advance Directives No Advanced Directives Records FoundNo Advanced Directives Records FoundNo Advanced Directives Records Found Additional Source Comments INFORMATION SOURCE (unrecogn ized section and content) DATE CREATED AUTHOR 10/08/2021 [facility] DATE CREATED AUTHOR AUTHOR'S ORGANIZ ATION 11/29/2024 [facility] EPIC DATE CREATED AUTHOR AUTHOR'S ORGANIZ ATION 12/06/2024 [facility] Reason for Visit (unrecogniz ed section and content) ReasonCommentsWell Women VisitReasonCommentsHeel PainLt heel pain Care Teams (unrecognized sec tion and content) Team MemberRelationshipSpecialtyStart DateEnd Date Kierra Negron MD [address] [address] PCP - GeneralMercyone Newton Medical Centerly Medicine06/23/22 Tracey Johnson PA [address] [place] [address] [place] [address] PCP - Medical [employer] [employer]08/16/1411Team MemberRelationshipSpecialty Start DateEnd Date Kierra Negron MD [address] [address] PCP - Generalmily Medicine06/23/22 Tracey Johnson PA [address] [place] [address] [place] [address] PCP - Medical [employer]08/16/1411Team MemberRelationshipSpecialty Start DateEnd Date Kierra Negron MD [address] [facility] [address] [place] [address] PCP - GeneralFamily Medicine06/23/22 Tracey Johnson PA [address] [place] [address] PCP - Medical [employer]08/16/1411Team MemberRelationshipSpecialty Start DateEnd Date Kierra Negron MD [address] [facility] [address] [place] [address] PCP - Generalmi Medicine06/23/22 Tracey Johnson PA [address] [place] [address] PCP - Medical [employer]08/16/1411Team MemberRelationshipSpecialty Start DateEnd Date Kierra Negron MD [address] [facility] [address] [place] [address] PCP - Generalmi Medicine06/23/22 Tracey Johnson PA [address] [place] [address] PCP - Medical [employer]08/16/1411Team MemberRelationshipSpecialty Start DateEnd Date Tracey Johnson PA [address] [place] [address] PCP - Medical [employer]08/16/1411Team MemberRelationshipSpecialty Start DateEnd Date Tracey Johnson PA [address] [place] [address] PCP - Medical [employer]08/16/1411 Team Status: Inactive Member Role Status Dates Irwin Garrett DO Attending Provider Active Start : November 28, 2024 End: November 28, 2024Team MemberRelationshipSpecialtyStart DateEnd Date Tracey Johnson PA [address] [facility] [address] [place], [facility]11 PCP - Medical [employer] [employer]08/16/1411 Goals (unrecognized section and content) Goals may be documented in a n alternate section FOR RECORDS PERTAINING TO PATIENTS WHO ARE [...] BE BASED ON THE PRIMARY CLINICAL RECORDS. [employer] provides no warranty or guarantee of the accuracy or completeness of information in this document.
--- OUTSIDE RECORDS SUMMARY | 2024-12-13 06:54 | XMS_ITS | Clinical Summary ---
Author Organization [facility] Address [address] [place] [address] Care Team Providers Care Edi Specialist Name Role Phone WewokaTracey Unavailable Allergies Active AllergyReactionsCriticalityNoted DateCommentsPenicillinsAnaphylaxis,Rash, Shortness of breath,Swelling,QrampdcGmfo04/03/2023 Medications MedicationSigDispense QuantityRefillsLast FilledStart DateEnd DateStatus valACYclovir (Valtrex) 1 g tablet Indications:Herpes circinatus bullosus (HCC)TAKE 1 TABLET BY MOUTH TWICE A DAY FOR 5 DAYS 10 tablet Discontinued Active Problems ProblemNoted DateDiagnosed DateHerpes circinatus ocwbgvtn90/02/2023ure zszwgrxnboakwhnsszdg00/02/2023 Encounters DateTypeDepartmentCare SifcFroidvdbhxf56/20/2025bstract [facility] [address] [place] [address] Chrissy Whitaker MA 11/29/2024Telephone [facility] [address] [place] [address] Leo Garrett DO 11/28/2024 8:30 AM EDTOffice Visit [facility]OM[facility]ley [facility] [address] [place] [address] Leo Garrett DO Well woman exam with routine gynecological exam; Encounter for screening mammogram for malignant neoplasm of breast; Postmenopausal state; Cervical polyp11/28/2024linisync Result Encounter [facility] External Department Unsolicited Provider, Generic External Data 11/28/2024amboo flowsheet [facility] [address] [place] [address] Leo Garrett DO 11/23/20243529Mkgsom55/19/2025linisync Result Encounter [facility]OMS External Department Unsolicited Kierra Negron MD from Last 3 Months Family History RelationNameStatusCommentsFatherAliveMotherAlive Social History Tobacco UseTypesPacks/DayYears UsedDateSmoking Tobacco: NeverSmokeless Tobacco: NeverAlcohol UseStandard Drinks/WeekCommentsNot Currently0 (1 standard drink = 0.6 oz pure alcohol)Caffeine intake: 2-3 cups per day coffeeCommentsNo Sex and Gender InformationValueDate RecordedSex Assigned at BirthNot on file Legal BgrZzpdfo70/15/2023 6:48 PM EDTGender IdentityNot on fileSexual OrientationNot on file Last Filed Vital Signs Vital SignReadingTime TakenCommentsBlood Ecojoutr207/7211/28/2024 8:37 AM EDT Pulse--Temperature--Respiratory Wohp826107/11/2024 3:49 PM EDTOxygen Saturation-- Inhaled Oxygen Concentration--Tnqpyu99.9 kg (171 lb 12 oz)11/28/2024 8:37 AM EDT Njblrk181.4 cm (5')07/11/2024 3:49 PM EDTBody Mass Index33.54007/11/2024 3:49 PM EDT Plan of Treatment DateTypeDepartmentCare Team (Latest Contact Info)Blsubmindyq88/19/2026 4:00 PM EDTProcedure Visit [facility] [address] [place] [address] Leo Garrett DO [address] [place], [place] [address] Health MaintenanceDue DateLast DoneCommentsCT Qwhxqztxniuz60/13/1964Colonoscopy 1965FIT1965FOBT1965 4290Xrueppvpcmahr97/13/1964MMR Vaccines (1 of 1 - Standard series)02/28/1964DTaP/Tdap/Td Vaccines (1 - Tdap)1970Mammogram 508/, 09/30/2022, 09/30/2022, Additional history existsCOVID-19 Vaccine (1 - season)2024Influenza Vaccine (#1)2024olorectal Cancer Ooozoybik56/24/2026FIT-DNA6003/10/2022, 10/19/2018Pap Smear , 06/13/2020ervical Cancer Wzuoybetf49/25/2028HPV/Cotest , 06/13/2020HIB VaccinesAged OutNo longer eligible based on patient's age to complete this topicHPV VaccinesAged OutNo longer eligible based on patient's age to complete this topicHepatitis A VaccinesAged OutNo longer eligible based on patient's age to complete this topicHepatitis B VaccinesAged OutNo longer eligible based on patient's age to complete this topicIPV Vaccines Aged OutNo longer eligible based on patient's age to complete this topic Meningococcal B VaccineAged OutNo longer eligible based on patient's age to complete this topicMeningococcal VaccineAged OutNo longer eligible based on patient's age to complete this topicPneumococcal Vaccine: Pediatrics (0 to 5 Years) and At-Risk Patients (6 to 64 Years)Aged OutNo longer eligible based on patient's age to complete this topicRotavirus VaccinesAged OutNo longer eligible based on patient's age to complete this topic Procedures Procedure NamePriorityDate/TimeAssociated DiagnosisCommentsIGP,APTIMA HPV,AGE GTGVCmuclim38/14/2025 8:25 AM EDT ALL CBC WITH AUTO BZHBWjwqoqm28/19/2025 6:32 AM EDT ALL THYROID STIM BVOMNBNWhsfqsa32/19/2025 6:14 AM EDT ALL LIPID PROFILE (FASTING)Nqlcufu5410/03/2024 6:14 AM EDT [facility] CMP (CMP) (FOR REMOTE ON LICENSE OF [facility] USE)Myoefxi6310/03/2024 6:14 AM EDT PAP COEHVAsrbbxv54/18/2024 12:00 AM EDTMM TOMOSYNTHESIS SCREENING BI10/07/2023 3:52 PM EDT THINPREP PAP AND HPV MRNA E6/E7 W/RFL HPV 16,18/78Ndftkrp04/25/2023 9:36 AM EDT Well woman exam with routine gynecological exam LAB COLOGUARD?? COLON CANCER DYJIACDwiqaop02/24/2023 from Last 3 Months or Most Recently Relevant to Health Maintenance Results * IGP,APTIMA HPV,AGE GDLN (11/28/2024 8:25 AM EDT)ComponentValueRef RangeTest MethodAnalysis TimePerformed AtPathologist SignatureAGE GDLN ACOG TESTINGNote. TBHComment: ?? TESTS ? RESULT ??FLAG ??UNITS ?REF RANGE ??LAB ?? Clinician Provided Cytology Information ?? Source.............Cervix;Endocervix ?? No. of containers..01 ThinPrep Vial Age Algo ACOG Aarti... ??30-65 ? 01 ?FLAG LEGEND: ?L-Low Normal,H-High Normal,LL-Alert Low,HH-Alert High <-Panic Low,>-Panic High,A-Abnormal,AA-Critical Abnormal Performed at: 01 =G ?[facility] ?? [address] [place], [place] ??[phone] ?? Jasmyne Cabrera MD, IGP, APTIMA HPV, RFX 16/18,45Note.TBHComment: ?? TESTS ? RESULT ??FLAG ??UNITS ?REF RANGE ??LAB DIAGNOSIS: ?02 ?? NEGATIVE FOR INTRAEPITHELIAL LESION OR MALIGNANCY. ?? REACTIVE CELLULAR CHANGES AND/OR REPAIR ARE PRESENT. ?? CELLULAR CHANGES ASSOCIATED WITH ATROPHY ARE PRESENT. Specimen adequacy: ?02 ?? Satisfactory for evaluation. ??Endocervical and/or squamous metaplastic ?? cells (endocervical component) are present. Performed by: ? 02 ?? Sharron Cook, Geophysical Operator (ASCP) Electronically si... ?02 ?? Jasmyne Cabrera MD, Pathologist . ? 02 Note: ? Note ?02 ?? The Pap smear is a screening test designed to aid in the ?? detection of premalignant and malignant conditions of the ?? uterine cervix. ??It is not a diagnostic procedure and ?? should not be used as the sole means of detecting cervical ?? cancer. ??Both false-positive and false-negative reports do ?? occur. Test Methodology: ? Note ?02 ?? This liquid based ThinPrep(R) pap test was interpreted ?? using the Synclogue(R) Genius(TM) Cervical Algorithm whole ?? slide imaging system. HPV Genotype Reflex ?? Note ?02 ?? Criteria not met, HPV Genotype not performed. ?FLAG LEGEND: ?L-Low Normal,H-High Normal,LL-Alert Low,HH-Alert High <-Panic Low,>-Panic High,A-Abnormal,AA-Critical Abnormal Performed at: 02 WB ?[facility] ?? [address] [place], [place] ??[address] ?? Jasmyne Cabrera MD, HPV APTIMANegativeNegativeTBHComment: This nucleic acid amplification test detects fourteen high- risk HPV types (16,18,31,33,35,39,45,51,52,56,58,59,66,68) without differentiation. Performed at: ??=G - [address] ??[id number] Conservation Policy Analyst: Jasmyne Cabrera MD, Phone: ??[phone] Performed at: ??WB - [address] ??[id number] Conservation Policy Analyst: Jasmyne Cabrera MD, Phone: ??[phone] Specimen (Source)Anatomical Location / LateralityCollection Method / Volume Collection TimeReceived Time11/28/2024 8:25 AM EDT1 3:20 PM EDT Narrative CLINISYNC - 12/04/2024 5:09 PM EDT BRUSH-SPATULA CERVIX ENDOCERVIX Authorizing ProviderResult TypeResult StatusGeneric External Data ProviderLAB BLOOD ORDERABLESFinal ResultPerforming OrganizationAddressCity/State/ZIP Code Phone Number [facility] * (ABNORMAL) ALL CBC WITH AUTO DIFF (10/03/2024 6:32 AM EDT)ComponentValueRef RangeTest MethodAnalysis TimePerformed AtPathologist SignatureTBH WBC3.8(L)4.0 - 11.0 10 3/uLTBHTBH RBC5.034.20 - 5.40 10 6/uLTBHTBH HGB14.112.0 - 16.0 g/dL TBHTBH HCT43.136.0 - 48.0 %TBHTBH MCV85.781.0 - 99.0 fLTBHTBH MCH28.026.7 - 34.0 pgTBHTBH MCHC32.729.9 - 35.2 g/dLTBHTBH RDW12.711.0 - 15.0 %TBHTBH COL056 150 - 450 10 3/uLTBHTBH MPV10.79.5 - 13.5 fLTBHNEUTROPHILS PERCENT AUTO49.9 43.0 - 75.0 %TBHLYMPHOCYTES PERCENT AUTO40.620.5 - 60.0 %TBHMONOCYTES PERCENT AUTO5.81.7 - 12.0 %TBHTBH EO %2.60.9 - 7.0 %TBHBASOPHILS PERCENT AUTO0.80.2 - 2.0 %TBHIMMATURE GRANULOCYTES PCT AUTO0.30.0 - 0.5 %TBHNEUTROPHILS ABSOLUTE AUTO1.91.4 - 6.5 10 3/uLTBHLYMPHOCYTES ABSOLUTE AUTO1.61.2 - 3.8 10 3/uLTBH MONOCYTES ABSOLUTE AUTO0.2(L)0.3 - 0.8 10 3/uLTBHTBH EO #0.10.0 - 0.7 10 3/uL TBHBASOPHILS ABSOLUTE AUTO0.00.0 - 0.1 10 3/uLTBHIMMATURE GRANULOCYTES ABS AUTO0.010.00 - 0.03 10 3/uLTBHSpecimen (Source)Anatomical Location / LateralityCollection Method / VolumeCollection TimeReceived Time10/03/2024 6:32 AM EDT10/03/2024 11:29 AM EDT Narrative CLINISYNC - 10/03/2024 11:40 AM EDT Authorizing ProviderResult TypeResult StatusKierra Negron MDCLINISYNCFinal Result Performing OrganizationAddressCity/State/ZIP CodePhone Number CLINISYNC TB * [facility] CMP (CMP) (FOR REMOTE ON LICENSE OF [facility] USE) (10/03/2024 6:14 AM EDT)ComponentValueRef RangeTest MethodAnalysis TimePerformed AtPathologist WbqsgephgJRJNNQ094377 - 145 mmol/LTBHPOTASSIUM4.13.5 - 5.1 mmol/EJHJNCNXPGKY99838 - 107 mmol/LTBH CARBON HIPGVLY01.021.0 - 32.0 mmol/LTBHANION GAP14.7TGMBLNSHWP9018 - 106 mg/dL TBHBLOOD UREA BIBGIAYR73.07.0 - 18.0 mg/dLTBHCREATININE0.720.55 - 1.02 mg/dL TBHTBH EGFR-AF [place]ER>60>=60 mL/min/1.73m 2TBHTBH EGFR-NON AF [place]>60 >=60 mL/min/1.73m 2TBHBUN CREATININE RATIO20.2DOUCFHOJGT4.38.5 - 10.1 mg/dLTBH BILIRUBIN TOTAL0.30.2 - 1.0 mg/dLTBHASPARTATE AMINO SFYLJBDJAQH5071 - 37 U/L TBHALANINE JKCVUFGOGJEDWKMS7584 - 59 U/LTBHALKALINE LWKNHFLEICK2294 - 116 U/L TBHTOTAL PROTEIN7.76.4 - 8.2 g/dLTBHALBUMIN LEVEL4.13.4 - 5.0 g/dLTBHGLOBULIN 3.6g/dLTBHALBUMIN GLOBULIN RATIO1.1TBHSpecimen (Source)Anatomical Location / LateralityCollection Method / VolumeCollection TimeReceived Time10/03/2024 6:14 AM EDT10/03/2024 10:09 AM EDT Narrative CLINISYNC - 10/03/2024 12:34 PM EDT Authorizing ProviderResult TypeResult StatusRuganalilia Negron MDCLINISYNCFinal Result Performing OrganizationAddressCity/State/ZIP CodePhone Number [facility] * ALL THYROID STIM HORMONE (10/03/2024 6:14 AM EDT)ComponentValueRef RangeTest MethodAnalysis TimePerformed AtPathologist SignatureTHYROID STIMULATING HORMONE3.3590.358 - 3.740 uIU/mLTBHSpecimen (Source)Anatomical Location / LateralityCollection Method / VolumeCollection TimeReceived Time10/03/2024 6:14 AM EDT10/03/2024 10:09 AM EDT Narrative CLINISYNC - 10/03/2024 12:34 PM EDT Authorizing ProviderResult TypeResult StatusKierra Negron MDCLINISYNCFinal Result Performing OrganizationAddressCity/State/ZIP CodePhone Number [facility] * (ABNORMAL) ALL LIPID PROFILE (FASTING) (10/03/2024 6:14 AM EDT)ComponentValue Ref RangeTest MethodAnalysis TimePerformed AtPathologist Signature HWSSYKFYGTXDC897<=150 mg/wEGHXWPGCOSLYGSH555(H)<=200 mg/dLTBHHDL XVYVNMWMLEU97 40 - 60 mg/dLTBHComment: > or =60 mg/dl - LOW CARDIOVASCULAR RISK <40 mg/dl - HIGH CARDIOVASCULAR RISK LDL CHOLESTEROL NFJLDWDLPR353.0mg/dLTBHComment: <100 mg/dl OPTIMAL 100-129 mg/dl NEAR OR ABOVE OPTIMAL 130-159 mg/dl BORDERLINE HIGH 160-189 mg/dl HIGH >190 mg/dl VERY HIGH VLDL YSQZGKZNKPE04.4mg/dLTBHCHOL HDL RATIO5.5TBHComment: 3.3 - 4.4 ?? LOW RISK 4.4 - 7.1 ?? AVERAGE RISK 7.1 - 11.0 ??MODERATE RISK >11.0 HIGH RISK Specimen (Source)Anatomical Location / LateralityCollection Method / Volume Collection TimeReceived Time10/03/2024 6:14 AM EDT10/03/2024 10:09 AM EDT Narrative CLINISYNC - 10/03/2024 12:34 PM EDT Authorizing ProviderResult TypeResult StatusKierra Negron MDCLINISYNCFinal Result Performing OrganizationAddressCity/State/ZIP CodePhone Number [facility]IN[facility]NC TB[facility] * Pap Smear (11/03/2023 12:00 AM EDT)Specimen (Source)Anatomical Location / LateralityCollection Method / VolumeCollection TimeReceived TimeSwabCervical swab / Unknown Narrative Authorizing ProviderResult TypeResult StatusAmy Elizabeth PALAB CYTOLOGY ORDERABLES Final ResultPerforming OrganizationAddressCity/State/ZIP CodePhone Number EXTERNAL LAB * MM TOMOSYNTHESIS SCREENING BI (10/07/2023 3:52 PM EDT)Anatomical Region LateralityModalityOtherSpecimen (Source)Anatomical Location / Laterality Collection Method / VolumeCollection TimeReceived Time10/07/2023 3:52 PM EDT Narrative 10/07/2023 3:53 PM EDT [facility] ?[address] ? [place] [address] ? Mammography Report ? Signed ? Patient: ELENA BATES ?MR#: [id number] ?? : 1965 ?Acct:[id number] ?? Age/Sex: 58 / F ?ADM Date: 10/06/23 ?? Loc: MAMMO ? Attending Dr: Leo Garrett D.O. ? Ordering Physician: Gerry,Leo D.O. ?Results: ? Date of Service: 10/06/23 ?Follow Up: ? Procedure(s): MM tomosynthesis screening BI ?? Accession Number(s): [id number] ? cc: KIERRA NEGRON ; Leo Garrett D.O. ? Patient Name: ? ELENA BATES ? MR#: [id number] ? : 1965 ? Exam Date: 10/06/2023 [...] Cancers ? None ? LOCATION: ? [facility] ? BREAST COMPOSITION: ? The breasts are [...] SHOULD BE BIOPSIED. ? Dictated by: Sid Bojorquez M.D. on 10/07/2023 at 15:51 ? Approved by: Sid Bojorquez M.D. on 10/07/2023 at 15:52 ? Dictated By: ?Sid Bojorquez M.D. ? Signed By: ?10/07/23 1553 ? DD/ 1552 ? TD/TT: ? [employer]: Procedure Note Radiology, Radiologist, MD - 10/07/2023 [place] [address] Mammography Report Signed Patient: ELENA BATES AMR#: [id number] : 1965Acct:[id number] Age/Sex: 58 / FADM Date: 10/06/23 Loc: MAMMO Attending Dr: Leo Garrett D.O. Ordering Physician: Leo Garrett D.O.Results: Date of Service: 10/06/23Follow Up: Procedure(s): MM tomosynthesis screening BI Accession Number(s): [id number] cc: KIERRA NEGRON ; Leo Garrett D.O. Patient Name: ELENA BATES MR#: [id number] : 1965 Exam Date: 10/06/2023 Ordering Doctor: DR Leo Garrett . RADIOLOGY REPORT PROCEDURE: MM TOMOSYNTHESIS SCREENING BI COMPARISON: MM TOMOSYNTHESIS SCREENING BI, 09/30/2022. MG MAMM BMJTTG4A BLOSSOM CAD, 06/19/2020. MG MAMM SCREEN BLOSSOM W CAD, 01/25/2019. MG MAMM BILSCRN W CAD DIG, 07/21/2012. INDICATIONS: screening Calculator Name NCI Breast Cancer Risk Assessment Tool 5 Year Breast Cancer Risk 1.80% Lifetime Breast Cancer Risk 8.90% Personal Breast Cancer No Personal Ovarian Cancer No Treatments None Family Cancers None LOCATION: [facility] BREAST COMPOSITION: The breasts are heterogeneously [...] M.D. Signed By:10/07/23 1553 DD/ 1552 TD/TT: [employer]: Authorizing ProviderResult TypeResult StatusGeneric External Data Provider CLINISYNC IMAGINGFinal Result * THINPREP PAP AND HPV MRNA E6/E7 W/RFL HPV 16,18/45 (10/09/2022 9:36 AM EDT) Narrative Authorizing ProviderResult TypeResult StatusAmy [facility] BLOOD ORDERABLES Final ResultPerforming OrganizationAddressCity/State/ZIP CodePhone Number EXTERNAL LAB * Cologuard?? colon cancer screening (03/10/2022)ComponentValueRef RangeTest MethodAnalysis TimePerformed AtPathologist SignatureCOLOGUARD RESULT REPORTABLENegativeNegativeNOMS LEGACY EXTERNAL LABComment: NEGATIVE TEST RESULT. A negative Cologuard result indicates a low likelihood that a colorectal cancer (CRC) or advanced adenoma (adenomatous polyps with more advanced pre-malignant features) ??is present. The chance that a person with a negative Cologuard test has a colorectal cancer is less than 1in 1500 (negative predictive value >99.9%) or has an advanced adenoma is less than 5.3% (negative predictive value 94.7%). These data are based on a prospective cross-sectional study of 10,000individuals at average risk for colorectal cancer who were screened with both Cologuard and colonoscopy. (Jake Giraldo al, N Engl J Med 2014;370(14):8110-7912) The normal value (reference range) for this assay is negative. COLOGUARD RE-SCREENING RECOMMENDATION: Periodic colorectal cancer screening is an important part ofpreventive healthcare for asymptomatic individuals at average risk for colorectal cancer. ??Following a negative Cologuard result, the [employer] and U.S. Multi-Society Task Force screening guidelines recommend a Cologuard re-screening interval of 3 years. References: [employer] Guideline for Colorectal Cancer Screening: https://www.cancer.or g/cancer/aaido-rueqnb-fjndla/vwapayrzh-kbwylbape-iqxxlub/acs-recommendations.htm stanislav; Blair MOYER, [place] ROJO, Grant MasonK, Colorectal Cancer Screening: Recommendations for Physicians and Patients from the U.S. Multi-Society Task Force on Colorectal Cancer Screening , Am J Gastroenterology 2017; 112:0172-0082. TEST DESCRIPTION: Composite algorithmic analysis of stool DNA-biomarkers with hemoglobin immunoassay. ?? Quantitative values of individual biomarkers are not reportable and are not associated with individual biomarker result reference ranges. Cologuard is intended for colorectal cancer screening ofadults of either sex, 45 years or older, [...] were screened with both Cologuard and colonoscopy. (Imperiale T. et al, N Engl J Med 2014;370(14):2513-4471.) Cologuard may produce a false negative or [...] can be accessed at the following location: www.Jimdo.com/results. Additional description of the Cologuard test process, warnings and precautions can be found at www.cologuard.com. Specimen (Source)Anatomical Location / LateralityCollection Method / Volume Collection TimeReceived Time03/10/2022 Narrative Authorizing ProviderResult TypeResult StatusKierra BENITEZ [facility]ST[facility] ORDERABLESFinal ResultPerforming OrganizationAddressCity/State/ZIP CodePhone Number [facility] from Last 3 Months or Most Recently Relevant to Health Maintenance Insurance Care Teams Team MemberRelationshipSpecialtyStart DateEnd Date Tracey Johnson PA [address] [place] [address] [place] [address] PCP - Medical [place] [employer]08/16/1411
--- OUTSIDE RECORDS SUMMARY | 2024-12-13 06:54 | XMS_ITS | Encounter Summary ---
Author Organization [facility] Address [address] [place] [address] Care Team Providers Care Grey Percher Name Role Phone Tracey Johnson DASIA Unavailable Encounter Details DateTypeDepartmentCare Team (Latest Contact Info)Thuxzjbhpjj08/15/2025Telephone [facility] [place] [facility] [address] [place] [address] Leo Garrett DO [address] [place] [address] Social History Tobacco UseTypesPacks/DayYears UsedDateSmoking Tobacco: NeverSmokeless Tobacco: NeverAlcohol UseStandard Drinks/WeekCommentsNot Currently0 (1 standard drink = 0.6 oz pure alcohol)Caffeine intake: 2-3 cups per day coffeeCommentsNo Sex and Gender InformationValueDate RecordedSex Assigned at BirthNot on file Legal HvxUkuieu53/15/2023 6:48 PM EDTGender IdentityNot on fileSexual OrientationNot on filedocumented as of this encounter Miscellaneous Notes * Telephone Encounter - Stacy Granados LPN - 11/29/2024 2:59 PM EDT [place] [facility] was asking for a time that a sampling was taken. Time was located and given to her. documented in this encounter Plan of Treatment DateTypeDepartmentCare Team (Latest Contact Info)Ialhdqxnruh69/19/2026 4:00 PM EDTProcedure Visit [facility] [place] [facility] [address] [place] [address] Leo Garrett DO [address] [place], [place] [id number] documented as of this encounter Visit Diagnoses Not on filedocumented in this encounter Care Teams Team MemberRelationshipSpecialtyStart DateEnd Date Tracey Johnson PA [address] [place] [address] PCP - Medical [place] [employer]7/documented as of this encounter
--- OUTSIDE RECORDS SUMMARY | 2024-12-13 06:54 | XMS_ITS | Encounter Summary ---
Author Organization [facility] Address [address] [place] [address] Care Team Providers Care Pocket Cutter Name Role Phone Tracey Johnson DASIA Unavailable Encounter Details DateTypeDepartmentCare Team (Latest Contact Info)Gsqzohglrkl21/20/2025bstract ZO[facility]A SORENSON [address] [place] [address] Chrissy Whitaker MA Social History Tobacco UseTypesPacks/DayYears UsedDateSmoking Tobacco: NeverSmokeless Tobacco: NeverAlcohol UseStandard Drinks/WeekCommentsNot Currently0 (1 standard drink = 0.6 oz pure alcohol)Caffeine intake: 2-3 cups per day coffeeCommentsNo Sex and Gender InformationValueDate RecordedSex Assigned at BirthNot on file Legal MjoVrbdla79/15/2023 6:48 PM EDTGender IdentityNot on fileSexual OrientationNot on filedocumented as of this encounter Plan of Treatment DateTypeDepartmentCare Team (Latest Contact Info)Zpiveqrxfsx23/19/2026 4:00 PM EDTProcedure Visit ZO[facility]A SORENSON [address] [place] [address] Leo Garrett DO [address] [place], [place] [id number] documented as of this encounter Visit Diagnoses Not on filedocumented in this encounter Care Teams Team MemberRelationshipSpecialtyStart DateEnd Date Tracey Johnson PA [address] [place] [address] PCP - Medical [place] [employer]08/16/1411documented as of this encounter
--- OUTSIDE RECORDS SUMMARY | 2024-12-13 06:54 | XMS_ITS | Encounter Summary ---
Author Organization [facility] Address [address] [place] [address] Care Team Providers Care Job Molder Name Role Phone Tracey Johnson DASIA Unavailable Encounter Details DateTypeDepartmentCare Team (Latest Contact Info)Gvvyhszhyiv57/14/2025linisync Result Encounter [facility] Unsolicited Provider, Generic External Data Social History Tobacco UseTypesPacks/DayYears UsedDateSmoking Tobacco: NeverSmokeless Tobacco: NeverAlcohol UseStandard Drinks/WeekCommentsNot Currently0 (1 standard drink = 0.6 oz pure alcohol)Caffeine intake: 2-3 cups per day coffeeCommentsNo Sex and Gender InformationValueDate RecordedSex Assigned at BirthNot on file Legal VlzJewzhd71/15/2023 6:48 PM EDTGender IdentityNot on fileSexual OrientationNot on filedocumented as of this encounter Plan of Treatment DateTypeDepartmentCare Team (Latest Contact Info)Etnqvlhoawb30/19/2026 4:00 PM EDTProcedure Visit [facility] [address] [address] Leo Garrett DO [address] [place], [place] [id number] documented as of this encounter Procedures Procedure NamePriorityDate/TimeAssociated DiagnosisCommentsIGP,APTIMA HPV,AGE SSBQSxptuse06/14/2025 8:25 AM EDT documented in this encounter Results * IGP,APTIMA HPV,AGE GDLN (11/28/2024 8:25 [...] at: 01 =G ?[facility] ?? [address] [place] ??[phone] ?? Jasmyne Cabrera MD, IGP, APTIMA HPV, [...] present. Performed by: ? 02 ?? Sharron Cook Wrapper Layer (ASCP) Electronically si... ?02 ?? Jasmyne Cabrera [...] pap test was interpreted ?? using the [employer](R) [employer]it Wireless(TM) Cervical Algorithm whole ?? slide imaging system. HPV Genotype Reflex ?? Note ?02 ?? Criteria not met, HPV Genotype not performed. ?FLAG LEGEND: ?L-Low Normal,H-High Normal,LL-Alert Low,HH-Alert High <-Panic Low,>-Panic High,A-Abnormal,AA-Critical Abnormal Performed at: 02 WB ?[facility] ?? [address], [place] ??[phone] ?? Jasmyne Cabrera MD, HPV APTIMANegativeNegativeTBHComment: This nucleic acid amplification test detects fourteen high- risk HPV types (16,18,31,33,35,39,45,51,52,56,58,59,66,68) without differentiation. Performed at: ??=G - [facility] [address], [place] ??[id number] Market Research Analyst: Jasmyne Cabrera MD, Phone: ??[phone] Performed at: ??WB - [facility] [address] [place], [place] ??[phone] Market Research Analyst: Jasmyne Cabrera MD, Phone: ??[phone] Specimen (Source)Anatomical Location / LateralityCollection Method / Volume Collection TimeReceived Time11/28/2024 8:25 AM EDT1 3:20 PM EDT Narrative [facility] - 12/04/2024 5:09 PM EDT BRUSH-SPATULA CERVIX ENDOCERVIX Authorizing ProviderResult TypeResult StatusGeneric External Data ProviderLAB BLOOD ORDERABLESFinal ResultPerforming OrganizationAddressCity/State/ZIP Code Phone Number [facility] documented in this encounter Visit Diagnoses Not on filedocumented in this encounter Care Teams Team MemberRelationshipSpecialtyStart DateEnd Date Tracey Johnson PA [address] [place] [address] PCP - Medical [facility] [employer]08/16/1411documented as of this encounter
== END 2024-12-13 06:51 | disposition home or self-care (01) ==
LOC: MAMMO 06:50
PROVIDERS: PCP Family Medicine; Visit Provider Obstetrics & Gynecology
DX: Z12.31 Encounter for screening mammogram for malignant neoplasm of breast (principal)
CPT/HCPCS: 77063; 77067